=== PATIENT | female | born 1965 | race Caucasian/White ===

== ENCOUNTER 2020-01-06 10:36 | Emergency (ER) | payer SELFPAY ==
[2020-01-06 10:41] VITALS: BP 176/95; PULSE 70; RESP 18; TEMP 37; O2SAT 97; BMI 24.5
--- NOTE | 2020-01-06 10:42 | CT_ITS ---
WS: [id number] CT HEAD NONCONTRAST HISTORY: Symptoms of Acute Stroke TECHNIQUE: Contiguous axial imaging performed through the brain in 2.5 mm imaging. Bone and soft tiss ue windows. Sagittal and coronal reformats reviewed. All CT scans at [facility] use at ast one of these dose optimization techniques: automated exposure control; mA and/or kV adjustment pe r patient size (includes targeted exams where dose is matched to clinical indication); or iterative r econstruction. DLP: 666.0 mGy.cm COMPARISON: 11/05/2009 No acute intracranial hemorrhage, midline shift or mass effect. No atrophy or prior infarcts or herniation. Ventricles: Normal size with no hydrocephalus. Paranasal sinuses: As visualized are clear. Mastoid air cells: Well pneumatized. Calvarium and scalp: Skull is intact with no soft tissue edema or swelling. CT/CT head wo con* [id number] IMPRESSION: Negative head CT.
--- NOTE | 2020-01-06 10:42 | ECG_ITS ---
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 Measurements Intervals [place] Rate: 63 P: 65 OK: 136 QRS: 13 QRSD: 85 T: 51 QT: 399 QTc: 411 Interpretive Statements SINUS RHYTHM Compared to ECG 04/09/2019 14:54:31 No significant changes Electronically Signed On 01-06-2020 16:55:10 CDT by Major Rice M.D. [email or web address] [email or web address]/store/[id number]
[2020-01-06 10:50] VITALS: BP 176/95; PULSE 73; RESP 19; O2SAT 97
[2020-01-06 11:02] LABS: Basophils % 0.4 %; Eosinophils # 0.1 10^3/uL (0.0-0.8); Eosinophils % 0.9 %; Lymphocytes # 3.2 10^3/uL (0.8-4.8); Lymphocytes % 33.9 %; Mean Corpuscular HGB Conc 31.6 g/dL (30.0-36.0); Mean Corpuscular Hemoglobin 30.3 pg (28.0-34.0); Mean Platelet Volume 10.1 fL (7.4-10.4); Monocytes # 0.4 10^3/uL (0.2-0.9); Monocytes % 4.6 %; Neutrophils # 5.7 10^3/uL (1.8-7.7); Nucleated Red Blood Cells % 0 %; Platelet Count 274 10^3/cmm (130-400); Red Blood Count 3.96 10^6/uL (4.1-5.3); Red Cell Distribution Width 13.4 % (12.1-15.1); White Blood Count 9.6 10^3/uL (4.0-10.0)
--- NOTE | 2020-01-06 11:06 | W.ED.NEUROSD ---
HPI - Neuro Symptoms/Deficit General: Chief Complaint: Neuro Symptoms/Deficit Stated Complaint: poss stroke Time Seen by Provider: 01/06/20 10:41 History of Present Illness: HPI Narrative: 54-year-old female presents emergency room complaining of being little confused. She denies any weakness over the last day she has had elevated blood pressure. Multiple greater than 180 on the systolic side yesterday she was stumbling a little work to check her blood pressure was markedly elevated 180s 190s over 100s. She is not had any difficulty speech or swallowing no recent illness no respiratory GI or symptoms. Her blood pressure still is elevated when she is here today. She was seen at [facility] and her blood pressure is elevated and they sent here to be evaluated. Later in the visit while the patient was here she developed a severe migrainous headache mostly on the left side. She did not have an initially when she arrived but it developed while here. Onset (ago): day(s) (1) Timing confirmed by: family member Severity: mild Quality: weak Relieving factors: none Exacerbating factors: none Context: gradual onset Associated symptoms: Reports no associated symptoms, headache(s), anorexia, malaise, nausea, seizures, short of breath, vertigo, vomiting, weakness and other; Deny chest pain, cough, diaphoresis or fevers/chills Treatments Prior to Arrival: none Review of Systems Const: Reports: malaise; Denies: diaphoresis ENMT: Denies: throat pain, ear or mastoid pain, nasal discharge or nasal congestion Card: Denies: chest pain Resp: Denies: dyspnea, productive cough or non-productive cough GI: Reports: nausea and vomiting : Denies: flank pain, difficulty voiding, dysuria, urinary frequency or urinary urgency Skin/Breast: Denies: rash or pruritus Neuro: Reports: headache(s) and vertigo PFSH ED PFSH: Medical History Hypertension Migraines Surgical History H/O: hysterectomy History of oophorectomy NIH stroke score NIHSS: Level Of Consciousness - 1a: 0 Level Of Consciousness Questions - 1b: Both Correct Level Of Consciousness Commands - 1c: Both Correct Best Gaze - 2: Normal Visual Arce - 3: No Visual Loss Facial Palsy - 4: Normal Motor Arm Right - 5: No Drift Motor Arm Left - 5: No Drift Motor Leg Right - 6: No Drift Motor Leg Left - 6: No Drift Limb Ataxia - 7: Absent Sensory - 8: Normal Best Language - 9: No Aphasia Dysarthia - 10: Normal Extinction And Inattention - 11: 0 Score: Total Score: 0 Physical Exam Const: COMMON NORMALS: no acute distress GENERAL APPEARANCE: cooperative and comfortable ORIENTATION/CONSCIOUSNESS: Yes awake, Yes oriented to person, Yes oriented to place and Yes oriented to time HENMT: COMMON NORMALS: normocephalic, atraumatic, hearing grossly normal bilaterally, external ears normal, EAC's normal, TM's normal bilaterally, Normal nasal mucous membranes and turbinates present, moist oral mucous membranes and oropharynx normal HEAD & SCALP: normocephalic and atraumatic NOSE: Normal nasal mucous membranes and turbinates present EXTERNAL EAR: Yes external ears normal EXTERNAL AUDITORY CANAL: EAC's normal TYMPANIC MEMBRANE: TM's normal bilaterally Eye: COMMON NORMALS: Equal, round and reactive pupils present, EOMs intact bilaterally, conjunctivae normal and no scleral icterus CONJUNCTIVA: Yes conjunctivae normal PUPIL: Yes Equal, round and reactive pupils present Neck/C-Spine: COMMON NORMALS: full ROM, no lymphadenopathy, supple and no JVD Lymph: LYMPHATIC: no lymphadenopathy noted and no lymphedema noted Resp: COMMON NORMALS: normal respiratory effort, No retractions, No use of accessory muscles and clear to auscultation bilaterally AUSCULTATION: clear to auscultation bilaterally Cardio: COMMON NORMALS: no JVD, regular rate, regular rhythm and No murmurs present (Cardio) RATE: regular rate RHYTHM: regular rhythm GI: COMMON NORMALS: Soft to palpation and No hepatosplenomegaly present AUSCULTATION: Yes normoactive bowel sounds PALPATION: Yes Soft to palpation, No Tenderness to palpation present (GI), No Guarding due to palpation present (GI) and Yes No hepatosplenomegaly present Extremity: COMMON NORMALS: normal to inspection, capillary refill normal, no clubbing, cyanosis or edema, no calf tenderness and no pedal edema Neuro: SENSORIUM/ORIENTATION: Yes oriented to person, Yes oriented to place and Yes oriented to time Skin: COMMON NORMALS: no rashes or lesions noted GENERAL SKIN EXAM: no rashes or lesions noted Course Vital Signs: Vital signs: Vital Signs Temperature 98.6 F 01/06/20 10:41 Pulse Rate 57 L 01/06/20 14:03 Respiratory Rate 16 01/06/20 14:03 Blood Pressure 166/94 01/06/20 14:03 Pulse Oximetry 98 01/06/20 14:03 MDM - Neuro Symptoms/Deficit MDM Narrative: Medical decision making narrative: Blood pressure is improved. Will start on amlodipine 5 mg daily we did give him Depacon for headache and significant improvement. She is feeling better however discharge home if has recurrence may return she has no focal neurologic deficits time of discharge did discuss with her blood pressure continue her other blood pressure medications like her to start on baby aspirin daily 5 mg vitamin low to pain daily and follow-up with primary care doctor for reevaluation of blood pressure within the next week. Lab Data: Labs: Lab Results 01/06/20 01/06/20 01/06/20 Range/Units 10:55 10:55 10:55 WBC 9.6 (4.0-10.0) 10^3/ uL RBC 3.96 L (4.1-5.3) 10^6/u L Hgb 12.0 (11.5-15.3) g/dL Hct 38.0 (37.0-47.0) % MCV 96.0 (81-99) fL MCH 30.3 (28.0-34.0) pg MCHC 31.6 (30.0-36.0) g/dL RDW 13.4 (12.1-15.1) % Plt Count 274 (130-400) 10^3/c mm MPV 10.1 (7.4-10.4) fL Neut % (Auto) 60.0 % Lymph % (Auto) 33.9 % Esmeralda % (Auto) 4.6 % Eos % (Auto) 0.9 % Baso % (Auto) 0.4 % Neut # (Auto) 5.7 (1.8-7.7) 10^3/u L Lymph # (Auto) 3.2 (0.8-4.8) 10^3/u L Esmeralda # (Auto) 0.4 (0.2-0.9) 10^3/u L Eos # (Auto) 0.1 (0.0-0.8) 10^3/u L Baso # (Auto) 0.0 (0.0-0.1) 10^3/u L Nucleated RBC % (a uto) 0 % Nucleated RBCs # 0.0 /100WBC PT 12.50 (10.5-13.3) SECO NDS INR 0.91 (0.8-1.2) APTT 28.0 (23.9-36.7) SECO NDS Sodium 139 (136-145) mmol/L Potassium 3.6 (3.5-5.1) mmol/L Chloride 105 (98-107) mmol/L Carbon Dioxide 22 (22-29) mmol/L Anion Gap 15.6 (5-19) BUN 10 (6-20) mg/dL Creatinine 0.6 (0.5-0.9) mg/dL GFR Calculation 104.2 (90-130) mL/min Glucose 93 (65-115) mg/dL POC Glucose (70-110) mg/dL Calculated Osmolal ity 284 L (285-295) mOsm/k g Calcium 9.6 (8.5-10.5) mg/dL Total Bilirubin 0.3 (0.15-1.2) mg/dL AST 15 (0-32) U/L ALT 11 (0-33) U/L Alkaline Phosphata se 65 (35-105) IU/L Total Protein 7.1 (6.6-8.7) g/dL Albumin 4.5 (3.5-5.2) g/dL Globulin 2.6 (1.3-4.6) g/dL Urine Color (Yellow) Urine Appearance (CLEAR) Urine pH (5-7) Ur Specific Gravit y (1.005-1.030) Urine Protein (Negative) Urine Glucose (UA) (Normal) Urine Ketones (Negative) Urine Blood (Negative) Urine Nitrate (Negative) Urine Bilirubin (NEGATIVE) Urine Urobilinogen (Negative) mg/dL Ur Leukocyte [place] ase (Negative) Urine RBC (0-2) /hpf Urine WBC (0-5) /hpf Ur Squamous Epith Cells (0-5) Amorphous Sediment Urine Bacteria (NONE) Urine Opiates Scre en (Negative) ng/mL Ur Barbiturates Sc reen (Negative) ng/mL Ur Phencyclidine S crn (Negative) ng/mL Ur Amphetamines Sc reen (Negative) ng/mL U Benzodiazepines Scrn (Negative) ng/mL Urine Cocaine Scre en (Negative) ng/mL U Marijuana (THC) Screen (Negative) ng/mL 01/06/20 01/06/20 01/06/20 Range/Units 10:57 11:04 11:04 WBC (4.0-10.0) 10^3/ uL RBC (4.1-5.3) 10^6/u L Hgb (11.5-15.3) g/dL Hct (37.0-47.0) % MCV (81-99) fL MCH (28.0-34.0) pg MCHC (30.0-36.0) g/dL RDW (12.1-15.1) % Plt Count (130-400) 10^3/c mm MPV (7.4-10.4) fL Neut % (Auto) % Lymph % (Auto) % Esmeralda % (Auto) % Eos % (Auto) % Baso % (Auto) % Neut # (Auto) (1.8-7.7) 10^3/u L Lymph # (Auto) (0.8-4.8) 10^3/u L Esmeralda # (Auto) (0.2-0.9) 10^3/u L Eos # (Auto) (0.0-0.8) 10^3/u L Baso # (Auto) (0.0-0.1) 10^3/u L Nucleated RBC % (a uto) % Nucleated RBCs # /100WBC PT (10.5-13.3) SECO NDS INR (0.8-1.2) APTT (23.9-36.7) SECO NDS Sodium (136-145) mmol/L Potassium (3.5-5.1) mmol/L Chloride (98-107) mmol/L Carbon Dioxide (22-29) mmol/L Anion Gap (5-19) BUN (6-20) mg/dL Creatinine (0.5-0.9) mg/dL GFR Calculation (90-130) mL/min Glucose (65-115) mg/dL POC Glucose 102 (70-110) mg/dL Calculated Osmolal ity (285-295) mOsm/k g Calcium (8.5-10.5) mg/dL Total Bilirubin (0.15-1.2) mg/dL AST (0-32) U/L ALT (0-33) U/L Alkaline Phosphata se (35-105) IU/L Total Protein (6.6-8.7) g/dL Albumin (3.5-5.2) g/dL Globulin (1.3-4.6) g/dL Urine Color Straw (Yellow) Urine Appearance Clear (CLEAR) Urine pH 5.0 (5-7) Ur Specific Gravit y 1.000 L (1.005-1.030) Urine Protein Neg (Negative) Urine Glucose (UA) Norm (Normal) Urine Ketones Negative (Negative) Urine Blood 2+ H (Negative) Urine Nitrate Negative (Negative) Urine Bilirubin Neg (NEGATIVE) Urine Urobilinogen Norm (Negative) mg/dL Ur Leukocyte [place] ase Negative (Negative) Urine RBC 0-4 H (0-2) /hpf Urine WBC None (0-5) /hpf Ur Squamous Epith Cells 0-4 H (0-5) Amorphous Sediment Not Reportable Urine Bacteria Trace (NONE) Urine Opiates Scre en Negative (Negative) ng/mL Ur Barbiturates Sc reen Negative (Negative) ng/mL Ur Phencyclidine S crn Negative (Negative) ng/mL Ur Amphetamines Sc reen Negative (Negative) ng/mL U Benzodiazepines Scrn Negative (Negative) ng/mL Urine Cocaine Scre en Negative (Negative) ng/mL U Marijuana (THC) Screen Positive H (Negative) ng/mL Discharge Plan Discharge Patient Disposition: Home, Self-Care Clinical Impression: Hypertension, Migraines Condition: Stable Prescriptions: New amlodipine 5 mg tablet 5 mg PO DAILY Qty: 30 RF: 0 aspirin 81 mg tablet,delayed release (DR/EC) 81 mg PO DAILY Qty: 30 RF: 0 No Action trazodone 50 mg tablet 50 mg PO BEDTIME RF: 0 lisinopril 20 mg tablet 20 mg PO DAILY RF: 0 nitroglycerin 0.4 mg tablet, sublingual 0.4 mg sublingual PRN RF: 0 Discharge Orders: Discharge Order (Routine); Ordered 01/06/20 Ordered By: Benigno Zheng Referrals: Patrick Guevara MD [Family Provider] - Discharge Diet: Advance as tolerated Discharge Activity: Resume usual activity Activity Restrictions/Additional Instructions: Follow-up on blood pressure with your primary care doctor within the next week Stand Alone Forms: Work/School Release Discharge Date/Time: 01/06/20 14:10 Coding Level of Care Code ED Police Service Technician for Bobbi Nuñez
[2020-01-06 11:16] LABS: Alanine Aminotransferase 11 U/L (0-33); Albumin Level 4.5 g/dL (3.5-5.2); Alkaline Phosphatase 65 IU/L (35-105); Anion Gap 15.6 (5-19); Aspartate Amino Transferase 15 U/L (0-32); Blood Urea Nitrogen 10 mg/dL (6-20); Calcium 9.6 mg/dL (8.5-10.5); Carbon Dioxide 22 mmol/L (22-29); Chloride 105 mmol/L (98-107); Globulin 2.6 g/dL (1.3-4.6); Glomerular Filtration Rate 104.2 mL/min (90-130); Glucose 93 mg/dL (65-115); Osmolality Calculated 284 mOsm/kg (285-295); Potassium 3.6 mmol/L (3.5-5.1); Sodium 139 mmol/L (136-145); Total Bilirubin 0.3 mg/dL (0.15-1.2); Total Protein 7.1 g/dL (6.6-8.7)
[2020-01-06 11:25] LABS: Add Urine Microscopic? YES; Bilirubin Urine Neg (NEGATIVE); Blood Urine 2+ (Negative); Glucose Urine UA Norm (Normal); Ketones Urine Negative (Negative); Leukocyte Esterase Urine Negative (Negative); Nitrate Urine Negative (Negative); Protein Urine Neg (Negative); Urine Appearance Clear (CLEAR); Urine Color Straw (Yellow); Urobilinogen Urine Norm (Negative)
[2020-01-06 11:28] LABS: Amphetamines Screen Urine Negative (Negative); Barbiturates Screen Urine Negative (Negative); Benzodiazepines Screen Urine Negative (Negative); Cocaine Screen Urine Negative (Negative); Opiate Screen Urine Negative (Negative); PCP Screen Urine Negative (Negative); THC Screen Urine Positive (Negative)
[2020-01-06 11:37] LABS: INR 0.91 (0.8-1.2)
[2020-01-06 11:46] LABS: Add Urine Culture? No; Bacteria Urine TRACE; RBC Urine 0-4 /hpf (0-2); Squamous Epithelial Cell Urine 0-4 (0-5)
[2020-01-06 11:48] VITALS: BP 157/90; PULSE 67; RESP 16; O2SAT 98
[2020-01-06] MEDS: metoclopramide 5 mg/mL SDV 2 mL 10 MG IVP (12:40)
[2020-01-06 12:41] VITALS: RESP 15; O2SAT 99
[2020-01-06] MEDS: ketorolac 30 mg/mL INJ IVP (12:41)
[2020-01-06] MEDS: morphine 4 mg/mL SDV 1 mL IVP (12:41)
[2020-01-06 12:45] VITALS: BP 127/73; PULSE 62; RESP 15; O2SAT 99
[2020-01-06] MEDS: valproic acid inj 500 MG in sodium chloride 0.9% 50 ML 55 MG IV (13:09)
[2020-01-06 14:03] VITALS: BP 166/94; PULSE 57; RESP 16; O2SAT 98
[2020-01-06 21:22] LABS: Glucose Point of Care 102 mg/dL (70-110)
== END 2020-01-06 14:10 | disposition home or self-care (01) ==
PROVIDERS: Emergency Provider Family Medicine; Family Provider Family Medicine
DX: I10 Essential (primary) hypertension (principal); G43.909 Migraine, unspecified, not intractable, without status migrainosus
CPT/HCPCS: 12345; 36416; 70450; 80053; 80306; 81001; 82962; 85025; 85610; 85730; 93005; 96365; 96366; 96375; 99284; J1885; J2270; J2765

== ENCOUNTER 2021-07-02 11:34 | Observation (INO) | payer OTHER, SELFPAY ==
[2021-07-02 11:42] VITALS: BP 177/68; PULSE 85; RESP 20; TEMP 36.9; O2SAT 100
[2021-07-02 12:03] LABS: ABG PH Result 7.46 (7.35-7.45); Blood Gas Allen Test Pos; Blood Gas Operator Identificat MONRO; Blood Gas Sample Site Radial, left; Blood Gas Sample Type Arterial; Ionized Calcium Level - ABG 1.2 mmol/L (1.1-1.4); Potassium Level - ABG 3.4 mmol/L (3.5-5.0); Total Hemoglobin 12.4 g/dL (12-16)
[2021-07-02 12:04] LABS: ABG PCO2 33.8 mmHg (35-45); Alveolar-Arterial Oxygen Gradi 5.6 mmHg (5-10); Arterial Blood Gas Hematocrit 37.9 % (37-47); Base Excess ABG 0.9 mmol/L (-2.0-2.0); Carboxyhemoglobin 5.7 %THgb (0.4-20.1); HCO3 ABG 24.2 mmol/L (22-26); HGB O2 Sat 88.3 % (95-100); Oxygen Device ROOM AIR; Oxygen Saturation ABG 94.7; PO2 ABG 62.6 mmHg (80.0-100.0)
--- NOTE | 2021-07-02 12:15 | ECG_ITS ---
[facility] Test Date: 2021-07-02 Pat Name: Irma Stern Department: Room: Gender: Female Rn Procedures: : 1965 Requested By: Benigno Main Order Number: [id number] Dann MD: Lorenzo Pinto M.D. Measurements Intervals [place] Rate: 72 P: 70 DC: 148 QRS: 51 QRSD: 90 T: 66 QT: 385 QTc: 422 Interpretive Statements SINUS RHYTHM INTERPRETATION BASED ON A DEFAULT AGE OF 40 YEARS Compared to ECG 01/06/2020 11:06:57 No significant changes Electronically Signed On 07-03-2021 20:15:13 ACTIVITIES VOLUNTEER by Lorenzo Pinto M.D. [email or web address] hospital [email or web address] health [email or web address] Hydro/store/NU/[id number] f
--- NOTE | 2021-07-02 12:15 | CTR_ITS ---
PROCEDURE INFORMATION: Exam: CT Angiography Head With Contrast, Arteriography Exam date and time: 07/02/2021 12:15 PM Age: 55 years old Clinical indication: Speech disturbance; Dysarthria and anarthria TECHNIQUE: Imaging protocol: Computed tomography angiography of the head with contrast. Exam focused on the arteries. 3D rendering (Not supervised by radiologist): MIP and/or 3D reconstructed images were created by the technologist. Radiation optimization: All CT scans at this facility use at least one of these dose optimization techniques: automated exposure control; mA and/or kV adjustment per patient size (includes targeted exams where dose is matched to clinical indication); or iterative reconstruction. Contrast material: OMNI 350; Contrast volume: 95 ml; Contrast route: INTRAVENOUS (IV); COMPARISON: CT head wo con* [id number] 07/02/2021 12:57 PM RADIATION DOSE METRICS: Total DLP (mGy-cm): 1559.85 FINDINGS: ANTERIOR CIRCULATION: Right internal carotid artery: Unremarkable. Intracranial segment is patent with no significant stenosis. No aneurysm. Right middle cerebral artery: The right middle cerebral artery is patent. There is a 2 mm aneurysm at the right MCA bifurcation. Right anterior cerebral artery: Unremarkable. No occlusion or significant stenosis. No aneurysm. Left internal carotid artery: Unremarkable. Intracranial segment is patent with no significant stenosis. No aneurysm. Left middle cerebral artery: Unremarkable. No occlusion or significant stenosis. No aneurysm. Left anterior cerebral artery: Unremarkable. No occlusion or significant stenosis. No aneurysm. POSTERIOR CIRCULATION: Right vertebral artery: Unremarkable. No occlusion or significant stenosis. No aneurysm. Left vertebral artery: Unremarkable. No occlusion or significant stenosis. No aneurysm. Basilar artery: Unremarkable. No occlusion or significant stenosis. No aneurysm. Right posterior cerebral artery: Unremarkable. No occlusion or significant stenosis. No aneurysm. Left posterior cerebral artery: Unremarkable. No occlusion or significant stenosis. No aneurysm. Brain: No definite mass, cerebral edema, or midline shift. Cerebral ventricles: No ventriculomegaly. Bones/joints: Unremarkable. No acute fracture. Soft tissues: Unremarkable. PROCEDURE INFORMATION: Exam: CT Angiography Neck With Contrast Exam date and time: 07/02/2021 12:15 PM Age: 55 years old Clinical indication: Speech disturbance; Dysarthria and anarthria TECHNIQUE: Imaging protocol: Computed tomography angiography of the neck with contrast. 3D rendering (Not supervised by radiologist): MIP and/or 3D reconstructed images were created by the technologist. Radiation optimization: All CT scans at this facility use at least one of these dose optimization techniques: automated exposure control; mA and/or kV adjustment per patient size (includes targeted exams where dose is matched to clinical indication); or iterative reconstruction. Contrast material: OMNI 350; Contrast volume: 95 ml; Contrast route: INTRAVENOUS (IV); COMPARISON: CT head wo con* [id number] 07/02/2021 12:57 PM RADIATION DOSE METRICS: Total DLP (mGy-cm): 1559.85 FINDINGS: Right common carotid artery: No stenosis. No dissection or occlusion. Right internal carotid artery: There is less than 20% stenosis of the proximal right ICA. Minimal beading of the right ICA is noted, possibly due to fibromuscular dysplasia. Right external carotid artery: No occlusion or stenosis of the origin. Left common carotid artery: No stenosis. No dissection or occlusion. Left internal carotid artery: There is beading of the left internal carotid artery, possibly due to fibromuscular dysplasia. This is causing less than 20% stenosis of the proximal left ICA. Left external carotid artery: No occlusion or stenosis of the origin. Right vertebral artery: No stenosis. No dissection or occlusion. Left vertebral artery: No stenosis. No dissection or occlusion. Soft tissues: Normal. No significant soft tissue swelling. Bones/joints: No acute fracture. Lungs: Centrilobular emphysema is present in the upper lobes. CT/CT angio headneck* [id number] IMPRESSION: 1. No acute abnormality. No large vessel occlusion. 2. 2 mm right MCA bifurcation aneurysm IMPRESSION: 1. No acute abnormality. 2. Chronic findings as discussed above. REFERENCES: NASCET CRITERIA. The degree of internal carotid artery stenosis is based on NASCET criteria. Normal is no stenosis. Mild is less than 50% stenosis. Moderate is 50-69% stenosis. Severe is 70% to 99% stenosis. Total occlusion is no detectable patent lumen.
--- NOTE | 2021-07-02 12:15 | CTR_ITS ---
PROCEDURE INFORMATION: Exam: CT Head Without Contrast Exam date and time: 07/02/2021 12:15 PM Age: 55 years old Clinical indication: Speech disturbance; Slurred speech; Additional info: Symptoms of acute stroke TECHNIQUE: Imaging protocol: Computed tomography of the head without contrast. Radiation optimization: All CT scans at this facility use at least one of these dose optimization techniques: automated exposure control; mA and/or kV adjustment per patient size (includes targeted exams where dose is matched to clinical indication); or iterative reconstruction. COMPARISON: CT head wo con* [id number] 01/06/2020 11:59 AM RADIATION DOSE METRICS: Total DLP (mGy-cm): 688.98 FINDINGS: Brain: No acute intracranial hemorrhage, cerebral edema, or midline shift. Cerebral ventricles: No hydrocephalus. Paranasal sinuses: There is no acute sinusitis. Mastoid air cells: Visualized mastoid air cells are well aerated. Orbital cavity: Unremarkable as visualized. Bones/joints: No acute fracture. Soft tissues: Unremarkable. CT/CT head wo con* [id number] IMPRESSION: 1. No acute intracranial abnormality. 2. [place] Stroke Program Early CT Score (ASPECTS) = 10
--- NOTE | 2021-07-02 12:26 | ED_ITS ---
HPI - Neuro Symptoms/Deficit General: Chief Complaint: Neuro Symptoms/Deficit Stated Complaint: possible stroke, weakness this am Time Seen by Provider: 07/02/21 12:02 History of Present Illness: HPI Narrative: 55-year-old female presents to the emergency room with difficulty with word selection and some slight slurring of the words. Initially on arrival triage nurse reported that she had a facial droop she did not have a facial droop when I seen the patient. Patient awoke this morning at 6 AM without any apparent deficits. However does not sound like she actually talked to any family member she went back to bed and then at 9 woke up and had difficulty with formulating words. When I seen the patient she has some very mild decrease sensation in the right arm and leg and right side of the face and some dysarthria. She has no limb ataxia. Her NIH score is 2. But her last known well time at 6 AM. Patient presents at 11:34 AM 5-1/2 hours after last known well. When patient is seen initially she is tachypneic and tells me she has circumoral numbness and tingling. Onset (ago): minute(s) Location: speech, right face, right arm and left leg History of same: No Severity: mild Relieving factors: none Exacerbating factors: none Context: other (Awoke with symptoms) On Anticoagulants: No Associated symptoms: Deny chest pain, cough, diaphoresis, fevers/chills, headach e(s), anorexia, malaise, nausea, seizures, short of breath, syncope, tingling, vertigo, vomiting or weakness Treatments Prior to Arrival: Aspirin (Takes daily) Review of Systems Const: Denies: malaise or diaphoresis ENMT: Denies: throat pain, ear or mastoid pain, nasal discharge or nasal congestion Card: Denies: chest pain or syncope Resp: Denies: dyspnea, productive cough or non-productive cough GI: Denies: nausea or vomiting : Denies: flank pain, difficulty voiding, dysuria, urinary frequency or urinary urgency Skin/Breast: Denies: rash or pruritus Neuro: Denies: headache(s) or vertigo PFS ED PFSH: Medical History (Updated 07/02/21 @ 14:46 by Beingno Zheng DO) Hypertension Migraines Surgical History H/O: hysterectomy History of oophorectomy NIH stroke score NIHSS: Level Of Consciousness - 1a: 0 Level Of Consciousness Questions - 1b: Both Correct Level Of Consciousness Commands - 1c: Both Correct Best Gaze - 2: Normal Visual Arce - 3: No Visual Loss Facial Palsy - 4: Normal Motor Arm Right - 5: No Drift Motor Arm Left - 5: No Drift Motor Leg Right - 6: No Drift Motor Leg Left - 6: No Drift Limb Ataxia - 7: Absent Sensory - 8: Mild To Moderate Loss Best Language - 9: No Aphasia Dysarthia - 10: Mild/Moderate Dysarthia Extinction And Inattention - 11: 0 Score: Total Score: 2 Physical Exam Const: COMMON NORMALS: no acute distress GENERAL APPEARANCE: cooperative and comfortable ORIENTATION/CONSCIOUSNESS: Yes awake, Yes oriented to person, Yes oriented to place and Yes oriented to time HENMT: COMMON NORMALS: normocephalic, atraumatic, hearing grossly normal bilaterally, external ears normal, EAC's normal, TM's normal bilaterally and Normal nasal mucous membranes and turbinates present HEAD & SCALP: normocephalic and atraumatic NOSE: Normal nasal mucous membranes and turbinates present EXTERNAL EAR: Yes external ears normal EXTERNAL AUDITORY CANAL: EAC's normal TYMPANIC MEMBRANE: TM's normal bilaterally Eye: COMMON NORMALS: Equal, round and reactive pupils present, EOMs intact bilaterally, conjunctivae normal and no scleral icterus CONJUNCTIVA: Yes conjunctivae normal PUPIL: Yes Equal, round and reactive pupils present Neck/C-Spine: COMMON NORMALS: full ROM, no lymphadenopathy, supple and no JVD Resp: COMMON NORMALS: normal respiratory effort, No retractions, No use of accessory muscles and clear to auscultation bilaterally AUSCULTATION: clear to auscultation bilaterally Cardio: COMMON NORMALS: no JVD, regular rate, regular rhythm and No murmurs present (Cardio) RATE: regular rate RHYTHM: regular rhythm GI: COMMON NORMALS: Soft to palpation and No hepatosplenomegaly present AUSCULTATION: Yes normoactive bowel sounds PALPATION: Yes Soft to palpation, No Tenderness to palpation present (GI), No Guarding due to palpation present (GI) and Yes No hepatosplenomegaly present Extremity: COMMON NORMALS: normal to inspection, capillary refill normal, no clubbing, cyanosis or edema, no calf tenderness and no pedal edema Neuro: SENSORIUM/ORIENTATION: Yes oriented to person, Yes oriented to place and Yes oriented to time Skin: COMMON NORMALS: no rashes or lesions noted GENERAL SKIN EXAM: no rashes or lesions noted Course Vital Signs: Vital signs: Vital Signs Temperature 98.5 F 07/02/21 11:42 Pulse Rate 85 07/02/21 11:42 Respiratory Rate 20 H 07/02/21 11:42 Blood Pressure 177/68 07/02/21 11:42 Pulse Oximetry 100 07/02/21 11:42 MDM - Neuro Symptoms/Deficit MDM Narrative: Medical decision making narrative: Patient outside window for any kind intervention versus NIH score initially in a senior was to. She is developing a bit of a migraine which she has had in the past that is different than what she usually has. CT of the head and CTA of the head and neck are unremarkable. Still does have some of her dysarthria we will go ahead and admit her to the [facility] floor discussed Dr. Bui he will see her for the remainder of the work-up. Lab Data: Labs: Lab Results 07/02/21 07/02/21 07/02/21 11:22 11:22 11:51 WBC RBC Hgb Hct MCV MCH MCHC RDW Plt Count MPV Neut % (Auto) Lymph % (Auto) Story % (Auto) Eos % (Auto) Baso % (Auto) Neut # (Auto) Lymph # (Auto) Story # (Auto) Eos # (Auto) Baso # (Auto) Nucleated RBC % (a uto) Nucleated RBCs # PT INR APTT Specimen Type Arterial Sample Site Radial, left ABG pH 7.46 H (7.35-7.45) ABG pCO2 33.8 mmHg L mmHg (35-45) ABG pO2 62.6 mmHg L mmHg (80.0-100.0) ABG HCO3 24.2 mmol/L mmol/ L (22-26) ABG O2 Saturation 94.7 ABG Base Excess 0.9 mmol/L mmol/L (-2.0-2.0) Zeyad Test Pos A-a O2 Gradient 5.6 mmHg mmHg (5-10) Hematocrit 37.9 % % (37-47) Hgb O2 Saturation 88.3 % L % (95-100) Carboxyhemoglobin 5.7 %THgb %THgb (0.4-20.1) Methemoglobin 1.0 % % (0.4-1.5) Total Hemoglobin 12.4 g/dL g/dL (12-16) Sodium 143.0 mmol/L mmol /L (131-143) Potassium 3.4 mmol/L L mmol /L (3.5-5.0) Glucose 105.0 mg/dL mg/dL (70-115) Ionized Calcium 1.2 mmol/L mmol/L (1.1-1.4) O2 Delivery Device Room air FiO2 21.0 % % Thermal Intelligence Analyst ID [place] Chloride Carbon Dioxide Anion Gap BUN Creatinine GFR Calculation Calculated Osmolal ity Calcium Total Bilirubin AST ALT Alkaline Phosphata se Total Protein Albumin Globulin Urine Color Yellow (Yellow) Urine Appearance Clear (CLEAR) Urine pH 6 (5-7) Ur Specific Gravit y 1.010 (1.005-1.030) Urine Protein Neg (Negative) Urine Glucose (UA) Norm (Normal) Urine Ketones Negative (Negative) Urine Blood 2+ H (Negative) Urine Nitrate Negative (Negative) Urine Bilirubin Neg (Negative) Urine Urobilinogen Norm mg/dL mg/dL (Negative) Ur Leukocyte [place] ase Negative (Negative) Urine RBC 0-4 /hpf H /hpf (0-2) Urine WBC None /hpf /hpf (0-5) Ur Squamous Epith Cells Rare /hpf /hpf (0-5) Amorphous Sediment Not Reportable Urine Bacteria None /hpf /hpf (NONE) Urine Opiates Scre en Negative ng/mL ng /mL (Negative) Ur Barbiturates Sc reen Negative ng/mL ng /mL (Negative) Ur Phencyclidine S crn Negative ng/mL ng /mL (Negative) Ur Amphetamines Sc reen Negative ng/mL ng /mL (Negative) U Benzodiazepines Scrn Negative ng/mL ng /mL (Negative) Urine Cocaine Scre en Negative ng/mL ng /mL (Negative) U Marijuana (THC) Screen Positive ng/mL H ng/mL (Negative) 07/02/21 07/02/21 07/02/21 12:00 12:00 12:00 WBC 9.3 10^3/uL 10^3/ uL (4.0-10.0) RBC 4.22 10^6/uL 10^6 /uL (4.1-5.3) Hgb 12.6 g/dL g/dL (11.5-15.3) Hct 37.9 % % (37.0-47.0) MCV 89.8 fl fl (81-99) MCH 29.9 pg pg (28.0-34.0) MCHC 33.2 g/dL g/dL (30.0-36.0) RDW 13.7 % % (12.1-15.1) Plt Count 350 10^3/cmm 10^3 /cmm (130-400) MPV 10.4 fL fL (7.4-10.4) Neut % (Auto) 61.9 % % Lymph % (Auto) 32.0 % % Story % (Auto) 5.2 % % Eos % (Auto) 0.4 % % Baso % (Auto) 0.4 % % Neut # (Auto) 5.75 10^3/uL 10^3 /uL (1.8-7.7) Lymph # (Auto) 3.0 10^3/uL 10^3/ uL (0.8-4.8) Story # (Auto) 0.5 10^3/uL 10^3/ uL (0.2-0.9) Eos # (Auto) 0.0 10^3/uL 10^3/ uL (0.0-0.8) Baso # (Auto) 0.0 10^3/uL 10^3/ uL (0.0-0.1) Nucleated RBC % (a uto) 0 % % Nucleated RBCs # 0.0 /100WBC /100W BC PT 12.90 SECONDS SEC ONDS (12.1-14.9) INR 0.95 (0.8-1.2) APTT 28.0 SECONDS SECO NDS (23.9-36.7) Specimen Type Sample Site ABG pH ABG pCO2 ABG pO2 ABG HCO3 ABG O2 Saturation ABG Base Excess Zeyad Test A-a O2 Gradient Hematocrit Hgb O2 Saturation Carboxyhemoglobin Methemoglobin Total Hemoglobin Sodium 142 mmol/L mmol/L (136-145) Potassium 3.6 mmol/L mmol/L (3.5-5.1) Glucose 99 mg/dL mg/dL (65-115) Ionized Calcium O2 Delivery Device FiO2 Thermal Intelligence Analyst ID Chloride 105 mmol/L mmol/L (98-107) Carbon Dioxide 21 mmol/L L mmol/ L (22-29) Anion Gap 19.6 H (5-19) BUN 11 mg/dL mg/dL (6-20) Creatinine 0.8 mg/dL mg/dL (0.5-0.9) GFR Calculation 74.5 mL/min L mL/ min (90-130) Calculated Osmolal ity 293 mOsm/kg mOsm/ kg (285-295) Calcium 8.8 mg/dL mg/dL (8.5-10.5) Total Bilirubin 0.4 mg/dL mg/dL (0.15-1.2) AST 12 U/L U/L (0-32) ALT 12 U/L U/L (0-33) Alkaline Phosphata se 72 IU/L IU/L (35-105) Total Protein 6.7 g/dL g/dL (6.6-8.7) Albumin 4.4 g/dL g/dL (3.5-5.2) Globulin 2.3 g/dL g/dL (1.3-4.6) Urine Color Urine Appearance Urine pH Ur Specific Gravit y Urine Protein Urine Glucose (UA) Urine Ketones Urine Blood Urine Nitrate Urine Bilirubin Urine Urobilinogen Ur Leukocyte [place] ase Urine RBC Urine WBC Ur Squamous Epith Cells Amorphous Sediment Urine Bacteria Urine Opiates Scre en Ur Barbiturates Sc reen Ur Phencyclidine S crn Ur Amphetamines Sc reen U Benzodiazepines Scrn Urine Cocaine Scre en U Marijuana (THC) Screen Discharge Plan Discharge Patient Disposition: Placed in Observation Clinical Impression: Cerebrovascular accident, Hypertension, Migraines Coding Level of Care Code ED General Operator for Bobbi Fwd Exam Comprehensive
[2021-07-02 12:28] LABS: Basophils % 0.4 %; Eosinophils % 0.4 %; Hematocrit 37.9 % (37.0-47.0); Hemoglobin 12.6 g/dL (11.5-15.3); Mean Corpuscular HGB Conc 33.2 g/dL (30.0-36.0); Mean Corpuscular Hemoglobin 29.9 pg (28.0-34.0); Mean Corpuscular Volume 89.8 fl (81-99); Mean Platelet Volume 10.4 fL (7.4-10.4); Monocytes # 0.5 10^3/uL (0.2-0.9); Monocytes % 5.2 %; Neutrophils # 5.75 10^3/uL (1.8-7.7); Neutrophils % 61.9 %; Nucleated Red Blood Cells % 0 %; Platelet Count 350 10^3/cmm (130-400); Red Blood Count 4.22 10^6/uL (4.1-5.3); Red Cell Distribution Width 13.7 % (12.1-15.1); White Blood Count 9.3 10^3/uL (4.0-10.0)
--- NOTE | 2021-07-02 12:45 | PC.NURSE ---
pt on continuous spo2 nibp and cm.
--- NOTE | 2021-07-02 12:47 | PC.NURSE ---
BLOOD GLUCOSE 99
[2021-07-02 12:55] LABS: INR 0.95 (0.8-1.2)
[2021-07-02 13:02] LABS: Alanine Aminotransferase 12 U/L (0-33); Albumin Level 4.4 g/dL (3.5-5.2); Alkaline Phosphatase 72 IU/L (35-105); Anion Gap 19.6 (5-19); Aspartate Amino Transferase 12 U/L (0-32); Blood Urea Nitrogen 11 mg/dL (6-20); Calcium 8.8 mg/dL (8.5-10.5); Carbon Dioxide 21 mmol/L (22-29); Chloride 105 mmol/L (98-107); Globulin 2.3 g/dL (1.3-4.6); Glomerular Filtration Rate 74.5 mL/min (90-130); Glucose 99 mg/dL (65-115); Osmolality Calculated 293 mOsm/kg (285-295); Potassium 3.6 mmol/L (3.5-5.1); Sodium 142 mmol/L (136-145); Total Bilirubin 0.4 mg/dL (0.15-1.2); Total Protein 6.7 g/dL (6.6-8.7)
[2021-07-02] MEDS: iohexol 350 mg/mL 100 mL Btl IV (13:08)
[2021-07-02 13:17] LABS: Urine Appearance Clear (CLEAR); Urine Color Yellow (Yellow); pH Urine 6 (5-7)
[2021-07-02 13:19] LABS: Add Urine Microscopic? YES; Bilirubin Urine Neg (Negative); Blood Urine 2+ (Negative); Glucose Urine UA Norm (Normal); Ketones Urine Negative (Negative); Leukocyte Esterase Urine Negative (Negative); Nitrate Urine Negative (Negative); Protein Urine Neg (Negative); Urobilinogen Urine Norm (Negative)
[2021-07-02 13:24] LABS: Amphetamines Screen Urine Negative (Negative); Barbiturates Screen Urine Negative (Negative); Benzodiazepines Screen Urine Negative (Negative); Cocaine Screen Urine Negative (Negative); Opiate Screen Urine Negative (Negative); PCP Screen Urine Negative (Negative); THC Screen Urine Positive (Negative)
[2021-07-02 13:25] LABS: Add Urine Culture? No; RBC Urine 0-4 /hpf (0-2); Squamous Epithelial Cell Urine RARE /hpf (0-5)
--- NOTE | 2021-07-02 16:14 | USCV_ITS ---
Irma Stern Age: 55 Gender: F : 1965 Exam Date: 07/02/2021 16:39 Ordering Phys: Saman Bui MD Technologist: ADRIAN Exam Location: [facility] [place] Indication: CVA BP: 177 / 68 HR: 57 Rhythm: Sinus Technical Quality: Very technically difficult study MEASUREMENTS (Male / Female) Normal Values 2D ECHO RV Chamber Size 1.8 cm LVOT Diameter 1.9 cm LA Width 2.5 cm LA Height 4.4 cm RA Width 2.5 cm RA Height 2.8 cm M-MODE LV Diastolic Diameter MM 4.2 cm 4.2 - 5.9 / 3.9 - 5.3 cm LV Systolic Diameter MM 2.3 cm LV Ejection Fraction MM Teich 77.7 % IVS Diastolic Thickness MM 1.2 cm 0.6 - 1.0 / 0.6 - 0.9 cm IVS Systolic Thickness MM 1.3 cm LVPW Diastolic Thickness MM 1.3 cm 0.6 - 1.0 / 0.6 - 0.9 cm LVPW Systolic Thickness MM 1.6 cm RV Diastolic Diameter MM 0.9 cm DOPPLER AV Peak Velocity 123.0 cm/s LVOT Peak Velocity 95.0 cm/s AV Area Cont Eq vti 2.5 cm squared AV Area Cont Eq pk 2.2 cm squared MV Area PHT 3.9 cm squared Mitral E to A Ratio 1.5 MV E' Velocity 41.0 cm/s Mitral E to MV E' Ratio 7.5 Mitral E to LV E' Lateral Ratio 7.4 Mitral E to LV E' Septal Ratio 7.6 TR Peak Velocity 228.0 cm/s TR Peak Gradient 20.8 mmHg TV Peak E Velocity 36.0 cm/s Right Atrial Pressure 3.0 mmHg Pulmonary Artery Systolic Pressu 23.8 mmHg RV Acceleration Time 0.1 s RV Ejection Time 0.3 s RV AcT/ET 0.4 FINDINGS Left Ventricle Normal left ventricular size and systolic function, EF 60%. No gross wall motion normalities Right Ventricle Possibly of normal size and ejection fraction Right Atrium Possibly of normal size. Left Atrium Possibly of normal size Mitral Valve No gross abnormalities noted Aortic Valve No gross abnormalities noted Tricuspid Valve Mild tricuspid valve regurgitation. Pulmonic Valve Pulmonic valve not well visualized. Pericardium No pericardial effusion. Aorta Normal aortic annulus size. CONCLUSIONS Normal left ventricular size and systolic function, EF 60%. No gross wall motion normalities. Possibly normal cardiac chamber sizes. Mild tricuspid valve regurgitation. There is no pericardial effusion. There are no intracardiac masses. No previous study is available for comparison. Technically difficult study because of the poor ultrasonic window. Dr Lorenzo Pinto MD FACC (Electronically Signed) Final Date: 03 July 2021 09:41 S
--- NOTE | 2021-07-02 16:19 | PM.HP ---
Providers/Chief Complaint Primary Care Provider: Patrick Guevara MD Chief Complaint: possible stroke, weakness this am History of Present Illness Irma Stern is a 55 year old female with a past medical history hypertension, migraines, current smoker, who presents [facility] due to word finding difficulty. Patient stated that this morning she woke up, and she had trouble finding words, trouble expressing herself, no slurring of words no facial droop, no visual deficits, no paresthesias, no focal neurologic deficits, no weakness, no stumbling, no falls. No blurry vision. No neck pain. She came to [facility], after 6 hours and was ordered the TPA window, NIH stroke scale was 4, CT of the head no acute bleed, CTA of the head and neck shows a 2 mm right MCA aneurysm no evidence of bleed, she was seen in the emergency room, her productive aphasia has significant improved, persist to some degree, her response times are a bit delayed, continues to have some degree of word finding difficulty, no other focal neurologic deficits. Currently complaining of a migraine headache, has a long history of migraine headaches, will be given Reglan and Ultram. Review of Systems Const: Denies: fever(s), chills, fatigue or malaise Eyes: Denies: change in vision or blurry vision ENMT: Denies: nasal congestion Card: Denies: chest pain, palpitations or syncope Resp: Denies: dyspnea, productive cough, non-productive cough or wheezing GI: Denies: abdominal pain, nausea, vomiting, hematemesis, diarrhea, constipation, hematochezia or melena : Denies: flank pain, dysuria or urinary frequency Musc: Denies: neck pain or back pain Skin/Breast: Denies: rash Neuro: Reports: headache(s) and difficulty communicating thoughts; Denies: numbness in extremities, weakness in extremities, sensory changes, lack of coordination, difficulty walking, frequent falls, dizziness, vertigo, confusion, Slurred speech present, seizure-like activity or involuntary movements Psych: Denies: anxiety Endo: Denies: polyuria or polydipsia Medications/Allergies Home Medications Medication Instructions Recorded Confirmed Last Taken Type amlodipine 5 mg PO DAILY #30 tab 01/06/20 07/02/21 07/01/21 Rx lisinopril 20 mg PO DAILY 01/06/20 07/02/21 07/02/21 History nitroglycerin 0.4 mg SUBLINGUAL PRN 01/06/20 07/02/21 Unknown History trazodone 50 mg PO BEDTIME 01/06/20 07/02/21 07/01/21 History aspirin 81 mg PO BEDTIME 07/02/21 07/02/21 07/01/21 History duloxetine 30 mg PO BEDTIME 07/02/21 07/02/21 07/01/21 History Allergies Allergy/AdvReac Type Severity Reaction Status Date / Time codeine Allergy Unknown Verified 01/06/20 11:58 PFSH Acute PFSH: Medical History (Updated 07/02/21 @ 14:46 by Benigno Zheng DO) Hypertension Migraines Surgical History H/O: hysterectomy History of oophorectomy Family History (Updated 07/02/21 @ 16:23 by Saman Bui MD) Mother Liver failure Father CAD (coronary artery disease) Social History (Updated 07/02/21 @ 16:23 by Saman Bui MD) Smoking and tobacco status: current every day smoker Alcohol intake: never Substance/Drug Use: never Vitals/I&O/Wt Last Vital Signs Temp 98.5 F 07/02/21 11:42 Pulse 85 07/02/21 11:42 Resp 20 H 07/02/21 11:42 BP 177/68 07/02/21 11:42 Pulse Ox 100 07/02/21 11:42 Physical Exam Const: COMMON NORMALS: no acute distress and patient oriented x3 GENERAL APPEARANCE: cooperative and comfortable HENMT: COMMON NORMALS: normocephalic HEAD & SCALP: normocephalic Eye: COMMON NORMALS: Equal, round and reactive pupils present and EOMs intact bilaterally GENERAL EYE: appearance normal, both eyes and all related structures PUPIL: Yes Equal, round and reactive pupils present Neck/C-Spine: COMMON NORMALS: full ROM and no lymphadenopathy THYROID: Thyroid normal Lymph: LYMPHATIC: no lymphadenopathy noted Resp: COMMON NORMALS: normal respiratory effort, No retractions, No use of accessory muscles and clear to auscultation bilaterally AUSCULTATION: clear to auscultation bilaterally Cardio: COMMON NORMALS: regular rate, regular rhythm, S1 normal heart sound present, S2 normal heart sound present, No gallops present (Cardio), No clicks present (Cardio) and No murmurs present (Cardio) RATE: regular rate RHYTHM: regular rhythm HEART SOUNDS: S1 normal heart sound present and S2 normal heart sound present GI: COMMON NORMALS: Normal to inspection, nondistended, normoactive bowel sounds present, Soft to palpation, non-tender and No hepatosplenomegaly present PALPATION: Yes Soft to palpation and Yes No hepatosplenomegaly present Extremity: COMMON NORMALS: normal to inspection, full ROM and no pedal edema Neuro: COMMON NORMALS: patient oriented x3, CN's II-XII intact bilaterally, moves all extremities, no focal motor deficits and no sensory deficits noted SENSORIUM/ORIENTATION: Yes alert, Yes oriented to person, Yes oriented to place and Yes oriented to time COORDINATION/BALANCE: [id number] test normal SPEECH: expressive aphasia MOTOR EXAM: 5/5 motor strength present throughout COORDINATION: [id number] test normal Psych: COMMON NORMALS: mental status grossly normal, Normal thought process present and cooperative THOUGHT PROCESS: Normal thought process present Data : 07/02/21 12:00 07/02/21 12:00 A&P Assessment and plan (1) Cerebrovascular accident: -CT of the head no acute stroke -CT of the head and neck 2 mm right MCA bifurcation aneurysm -Admit to medical floors -Allow for permissive hypertension, will treat if systolic blood pressure greater than 220 or diastolic in the 120 -Neurochecks -PT OT speech therapy eval -IV fluids -Aspirin, statin, Plavix -Cardiac echo, telemetry monitoring, TSH -Full code -Lovenox for DVT prophylaxis Status: Acute (2) Hypertension: Status: Acute Attestations Medical Necessity Statement*: Patient requires hospitalization for CVA, outpatient with observation Coding Level of Care Code Acute Sas Programmer Remote for [facility] Diagnoses Cerebrovascular accident I63.9 Hypertension I10
[2021-07-02] MEDS: TRAMadol 50 mg Tablet PO (16:45)
[2021-07-02] MEDS: metoclopramide 5 mg/mL SDV 2 mL IVP (16:45)
[2021-07-02 17:17] LABS: Thyroid Stimulating Hormone 0.67 uIU/mL (0.27-4.20)
[2021-07-02] MEDS: aspirin 81 mg EC Tablet PO (17:20)
[2021-07-02] MEDS: clopidogrel 75 mg Tablet PO (17:20)
[2021-07-02] MEDS: enoxaparin 40 mg/0.4 mL Syringe SUBCUT (17:21)
[2021-07-02] MEDS: sodium chloride 0.9% 1,000 ML 75 ML IV (17:22)
[2021-07-02 17:29] LABS: Estmated Average Glucose 128; Hemoglobin A1C 6.1 % (4.0-6.0)
[2021-07-02 20:00] VITALS: BP 137/78; PULSE 58; RESP 18; TEMP 36.4; O2SAT 95
[2021-07-02] MEDS: atorvastatin 40 mg Tablet PO (20:12)
[2021-07-02 20:15] VITALS: BP 137/78; PULSE 58; RESP 18; TEMP 36.4
[2021-07-02 21:23] VITALS: BMI 20.9
[2021-07-02] MEDS: trazodone 50 mg Tablet PO (21:58)
[2021-07-02 22:00] VITALS: PULSE 61
[2021-07-03] VITALS: BP 110/61; PULSE 61; PULSE 65; RESP 18
[2021-07-03 04:00] VITALS: BP 142/83; PULSE 72; RESP 19; TEMP 36.9; O2SAT 99
[2021-07-03] MEDS: acetaminophen 325 mg Tablet 650 MG PO (04:07)
[2021-07-03 06:00] VITALS: PULSE 63
[2021-07-03 06:28] LABS: Basophils # 0.1 10^3/uL (0.0-0.1); Basophils % 0.8 %; Eosinophils # 0.1 10^3/uL (0.0-0.8); Eosinophils % 1.2 %; Hematocrit 33.6 % (37.0-47.0); Hemoglobin 10.9 g/dL (11.5-15.3); Lymphocytes # 3.9 10^3/uL (0.8-4.8); Lymphocytes % 58.4 %; Mean Corpuscular HGB Conc 32.4 g/dL (30.0-36.0); Mean Corpuscular Hemoglobin 29.4 pg (28.0-34.0); Mean Corpuscular Volume 90.6 fl (81-99); Mean Platelet Volume 10.6 fL (7.4-10.4); Monocytes # 0.4 10^3/uL (0.2-0.9); Monocytes % 5.8 %; Neutrophils # 2.22 10^3/uL (1.8-7.7); Neutrophils % 33.6 %; Nucleated Red Blood Cells % 0 %; Platelet Count 262 10^3/cmm (130-400); Red Blood Count 3.71 10^6/uL (4.1-5.3); Red Cell Distribution Width 13.7 % (12.1-15.1); White Blood Count 6.6 10^3/uL (4.0-10.0)
[2021-07-03 06:31] LABS: Glucose Point of Care 89 mg/dL (70-110)
[2021-07-03 06:56] LABS: Anion Gap 17.3 (5-19); Blood Urea Nitrogen 14 mg/dL (6-20); Calcium 8.3 mg/dL (8.5-10.5); Carbon Dioxide 21 mmol/L (22-29); Chloride 105 mmol/L (98-107); Glomerular Filtration Rate 103.8 mL/min (90-130); Glucose 83 mg/dL (65-115); Osmolality Calculated 290 mOsm/kg (285-295); Potassium 3.3 mmol/L (3.5-5.1); Sodium 140 mmol/L (136-145)
[2021-07-03 08:13] VITALS: BP 121/77; PULSE 53; RESP 16; TEMP 36.8; O2SAT 97
[2021-07-03] MEDS: aspirin 81 mg EC Tablet PO (08:26)
[2021-07-03] MEDS: pantoprazole DR 40 mg Tablet PO (08:27)
[2021-07-03] MEDS: clopidogrel 75 mg Tablet PO (08:27)
[2021-07-03] MEDS: sodium chloride 0.9% 1,000 ML 75 ML IV (08:32)
--- NOTE | 2021-07-03 10:04 | PC.OT ---
OT EVALUATION ORDERS RECEIVED. OT SCREEN COMPLETED. PATIENT WAS SEEN WALKING IN HER ROOM INDEPENDENTLY, TRANSFERRING IN/OUT OF BED. NO OTHER DEFICITS NOTED AT THIS TIME.
[2021-07-03 11:52] VITALS: BP 134/70; PULSE 56; RESP 18; TEMP 36.7; O2SAT 97
--- NOTE | 2021-07-03 11:56 | P.DS_ITS ---
Discharge Providers Date of Admission: 07/02/21 14:49 Date of Discharge: July 03, 2021 Attending Provider at Admission: Saman Bui MD Attending Provider at Discharge: Saman Bui MD Primary Care Provider: Patrick Guevara MD Diagnoses at Discharge Discharge Diagnosis (1) Cerebrovascular accident: Status: Acute (2) Hypertension: Status: Acute Reason for Visit Reason for Visit: possible stroke, weakness this am Hospital Course Hospital Course Irma Stern is a 55 year old female with a past medical history hypertension, migraines, current smoker, who presents [facility] due to word finding difficulty. 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 Patient was clinically monitored, word finding difficulty improved back to baseline before discharge. Discharged on aspirin, Plavix for total of 21 days, atorvastatin, resuming blood pressure medications tomorrow, follow-up with neurology in 1 month, was advised if she had recurrent strokelike symptoms, call 911. Patient was advised to stop smoking. For her prediabetes, discussed with primary care provider of Metformin or Ozempic For her 2 mm MCA bifurcation aneurysm, follow-up with neurosurgery in [place] in 1 month, she was advised she had a significant headache out of the ordinary, worst headache of her life go to the emergency room due to life- threatening nature of aneurysm rupture. Advised to quit smoking. Physical Exam Const: COMMON NORMALS: no acute distress and patient oriented x3 Resp: COMMON NORMALS: normal respiratory effort, No retractions, No use of accessory muscles and clear to auscultation bilaterally AUSCULTATION: clear to auscultation bilaterally Cardio: COMMON NORMALS: regular rate, regular rhythm, S1 normal heart sound present and S2 normal heart sound present RATE: regular rate RHYTHM: regular rhythm HEART SOUNDS: S1 normal heart sound present and S2 normal heart sound present GI: COMMON NORMALS: Normal to inspection, nondistended, normoactive bowel sounds present, Soft to palpation and non-tender PALPATION: Yes Soft to palpation Extremity: COMMON NORMALS: no pedal edema Neuro: COMMON NORMALS: patient oriented x3, CN's II-XII intact bilaterally, moves all extremities, no focal motor deficits and no sensory deficits noted COORDINATION/BALANCE: [id number] test normal GAIT: Yes Normal gait present MOTOR EXAM: 5/5 motor strength present throughout COORDINATION: [id number] test normal Psych: COMMON NORMALS: mental status grossly normal Discharge Data Data Completed and Pending: Completed Studies During Hospitalization Category Date Time Status CT angio headneck * [id number] Stat Cat Scan 07/02/21 12:[address] head wo con* [id number] Stat Cat Scan 07/02/21 12:15 Completed CV. echo complete * [id number] Routine Ultrasound 07/02/21 16:14 Completed Pending at discharge Category Date Time Status Basic Metabolic P tomy AM LABS Lab 07/04/21 04:00 Ordered Basic Metabolic P tomy AM LABS Lab 07/05/21 04:00 Ordered Complete Blood Co unt w/Auto AM LABS Lab 07/04/21 04:00 Ordered Complete Blood Co unt w/Auto AM LABS Lab 07/05/21 04:00 Ordered Labs from last 24 hours 07/03/21 07/03/21 07/03/21 06:22 04:57 04:57 WBC 6.6 RBC 3.71 L Hgb 10.9 L Hct 33.6 L MCV 90.6 MCH 29.4 MCHC 32.4 RDW 13.7 Plt Count 262 MPV 10.6 H Neut % (Auto) 33.6 Lymph % (Auto) 58.4 Evans % (Auto) 5.8 Eos % (Auto) 1.2 Baso % (Auto) 0.8 Neut # (Auto) 2.22 Lymph # (Auto) 3.9 Evans # (Auto) 0.4 Eos # (Auto) 0.1 Baso # (Auto) 0.1 Nucleated RBC % (a uto) 0 Nucleated RBCs # 0.0 PT INR APTT Specimen Type Sample Site ABG pH ABG pCO2 ABG pO2 ABG HCO3 ABG O2 Saturation ABG Base Excess Zeyad Test A-a O2 Gradient Hematocrit Hgb O2 Saturation Carboxyhemoglobin Methemoglobin Total Hemoglobin Sodium 140 Potassium 3.3 L Glucose 83 Ionized Calcium O2 Delivery Device FiO2 Economics Teacher ID Chloride 105 Carbon Dioxide 21 L Anion Gap 17.3 BUN 14 Creatinine 0.6 GFR Calculation 103.8 POC Glucose 89 Estimat Average Gl ucose Hemoglobin A1c Calculated Osmolal ity 290 Calcium 8.3 L Total Bilirubin AST ALT Alkaline Phosphata se Total Protein Albumin Globulin TSH Urine Color Urine Appearance Urine pH Ur Specific Gravit y Urine Protein Urine Glucose (UA) Urine Ketones Urine Blood Urine Nitrate Urine Bilirubin Urine Urobilinogen Ur Leukocyte [place] ase Urine RBC Urine WBC Ur Squamous Epith Cells Amorphous Sediment Urine Bacteria Urine Opiates Scre en Ur Barbiturates Sc reen Ur Phencyclidine S crn Ur Amphetamines Sc reen U Benzodiazepines Scrn Urine Cocaine Scre en U Marijuana (THC) Screen 07/02/21 07/02/21 07/02/21 12:00 12:00 12:00 WBC RBC Hgb Hct MCV MCH MCHC RDW Plt Count MPV Neut % (Auto) Lymph % (Auto) Evans % (Auto) Eos % (Auto) Baso % (Auto) Neut # (Auto) Lymph # (Auto) Evans # (Auto) Eos # (Auto) Baso # (Auto) Nucleated RBC % (a uto) Nucleated RBCs # PT INR APTT Specimen Type Sample Site ABG pH ABG pCO2 ABG pO2 ABG HCO3 ABG O2 Saturation ABG Base Excess Zeyad Test A-a O2 Gradient Hematocrit Hgb O2 Saturation Carboxyhemoglobin Methemoglobin Total Hemoglobin Sodium 142 Potassium 3.6 Glucose 99 Ionized Calcium O2 Delivery Device FiO2 Economics Teacher ID Chloride 105 Carbon Dioxide 21 L Anion Gap 19.6 H BUN 11 Creatinine 0.8 GFR Calculation 74.5 L POC Glucose Estimat Average Gl ucose 128 Hemoglobin A1c 6.1 H Calculated Osmolal ity 293 Calcium 8.8 Total Bilirubin 0.4 AST 12 ALT 12 Alkaline Phosphata se 72 Total Protein 6.7 Albumin 4.4 Globulin 2.3 TSH 0.67 Urine Color Urine Appearance Urine pH Ur Specific Gravit y Urine Protein Urine Glucose (UA) Urine Ketones Urine Blood Urine Nitrate Urine Bilirubin Urine Urobilinogen Ur Leukocyte [place] ase Urine RBC Urine WBC Ur Squamous Epith Cells Amorphous Sediment Urine Bacteria Urine Opiates Scre en Ur Barbiturates Sc reen Ur Phencyclidine S crn Ur Amphetamines Sc reen U Benzodiazepines Scrn Urine Cocaine Scre en U Marijuana (THC) Screen 07/02/21 07/02/21 07/02/21 12:00 12:00 11:51 WBC 9.3 RBC 4.22 Hgb 12.6 Hct 37.9 MCV 89.8 MCH 29.9 MCHC 33.2 RDW 13.7 Plt Count 350 MPV 10.4 Neut % (Auto) 61.9 Lymph % (Auto) 32.0 Evans % (Auto) 5.2 Eos % (Auto) 0.4 Baso % (Auto) 0.4 Neut # (Auto) 5.75 Lymph # (Auto) 3.0 Evans # (Auto) 0.5 Eos # (Auto) 0.0 Baso # (Auto) 0.0 Nucleated RBC % (a uto) 0 Nucleated RBCs # 0.0 PT 12.90 INR 0.95 APTT 28.0 Specimen Type Arterial Sample Site Radial, left ABG pH 7.46 H ABG pCO2 33.8 L ABG pO2 62.6 L ABG HCO3 24.2 ABG O2 Saturation 94.7 ABG Base Excess 0.9 Zeyad Test Pos A-a O2 Gradient 5.6 Hematocrit 37.9 Hgb O2 Saturation 88.3 L Carboxyhemoglobin 5.7 Methemoglobin 1.0 Total Hemoglobin 12.4 Sodium 143.0 Potassium 3.4 L Glucose 105.0 Ionized Calcium 1.2 O2 Delivery Device Room air FiO2 21.0 Economics Teacher ID [place] Chloride Carbon Dioxide Anion Gap BUN Creatinine GFR Calculation POC Glucose Estimat Average Gl ucose Hemoglobin A1c Calculated Osmolal ity Calcium Total Bilirubin AST ALT Alkaline Phosphata se Total Protein Albumin Globulin TSH Urine Color Urine Appearance Urine pH Ur Specific Gravit y Urine Protein Urine Glucose (UA) Urine Ketones Urine Blood Urine Nitrate Urine Bilirubin Urine Urobilinogen Ur Leukocyte [place] ase Urine RBC Urine WBC Ur Squamous Epith Cells Amorphous Sediment Urine Bacteria Urine Opiates Scre en Ur Barbiturates Sc reen Ur Phencyclidine S crn Ur Amphetamines Sc reen U Benzodiazepines Scrn Urine Cocaine Scre en U Marijuana (THC) Screen 07/02/21 07/02/21 11:22 11:22 WBC RBC Hgb Hct MCV MCH MCHC RDW Plt Count MPV Neut % (Auto) Lymph % (Auto) Evans % (Auto) Eos % (Auto) Baso % (Auto) Neut # (Auto) Lymph # (Auto) Evans # (Auto) Eos # (Auto) Baso # (Auto) Nucleated RBC % (a uto) Nucleated RBCs # PT INR APTT Specimen Type Sample Site ABG pH ABG pCO2 ABG pO2 ABG HCO3 ABG O2 Saturation ABG Base Excess Zeyad Test A-a O2 Gradient Hematocrit Hgb O2 Saturation Carboxyhemoglobin Methemoglobin Total Hemoglobin Sodium Potassium Glucose Ionized Calcium O2 Delivery Device FiO2 Economics Teacher ID Chloride Carbon Dioxide Anion Gap BUN Creatinine GFR Calculation POC Glucose Estimat Average Gl ucose Hemoglobin A1c Calculated Osmolal ity Calcium Total Bilirubin AST ALT Alkaline Phosphata se Total Protein Albumin Globulin TSH Urine Color Yellow Urine Appearance Clear Urine pH 6 Ur Specific Gravit y 1.010 Urine Protein Neg Urine Glucose (UA) Norm Urine Ketones Negative Urine Blood 2+ H Urine Nitrate Negative Urine Bilirubin Neg Urine Urobilinogen Norm Ur Leukocyte [place] ase Negative Urine RBC 0-4 H Urine WBC None Ur Squamous Epith Cells Rare Amorphous Sediment Not Reportable Urine Bacteria None Urine Opiates Scre en Negative Ur Barbiturates Sc reen Negative Ur Phencyclidine S crn Negative Ur Amphetamines Sc reen Negative U Benzodiazepines Scrn Negative Urine Cocaine Scre en Negative U Marijuana (THC) Screen Positive H Vitals: Last Vital Signs Temp 98.1 F 07/03/21 11:52 Pulse 56 L 07/03/21 11:52 Resp 18 07/03/21 11:52 BP 134/70 07/03/21 11:52 Pulse Ox 97 07/03/21 11:52 Discharge Plan Discharge Patient Disposition: Home Condition: Stable Prescriptions: New clopidogrel 75 mg Tablet 75 mg PO DAILY 20 Days Qty: 20 RF: 0 atorvastatin 40 mg Tablet 40 mg PO BEDTIME 30 Days Qty: 30 RF: 0 Continued trazodone 50 mg tablet 50 mg PO BEDTIME RF: 0 nitroglycerin 0.4 mg tablet, sublingual 0.4 mg sublingual PRN RF: 0 duloxetine 30 mg capsule,delayed release(DR/EC) 30 mg PO BEDTIME RF: 0 Changed aspirin 81 mg tablet,delayed release (DR/EC) 81 mg PO BEDTIME 30 Days Qty: 30 RF: 0 Held lisinopril 20 mg tablet 20 mg PO DAILY RF: 0 Hold Instructions: Resume on 07/04/21. amlodipine 5 mg tablet 5 mg PO DAILY Qty: 30 RF: 0 Hold Instructions: Resume on 07/04/21. Discharge Orders: Discharge Order (Routine); Ordered 07/03/21 Ordered By: Saman Bui Referrals: Monique Allison MD [Physician] - 1 month Hema Smith MD [Referring] - 1 month (aneurysm) Patrick Guevara MD [Primary Care Provider] - 1-3 days Discharge Diet: Cardiac Discharge Activity: Resume usual activity Patient Instructions: Opioid Safety Activity Restrictions/Additional Instructions: -Please hold blood pressure medications until tomorrow -Please continue aspirin 81 mg indefinitely -Please take Plavix 75 mg once daily for the next 20 days, then stop -Please take atorvastatin 40 mg once daily indefinitely -Please monitor for bloody or black stools if so go to the emergency room -Your hemoglobin A1c 6.1, discussed with primary care provider about Metformin or Ozempic -Please stop smoking -If you have recurrent strokelike symptoms call 911 -Follow-up with primary care provider in 1 week Discharge Attestations Time Spent in Discharge Care*: less than 30 min Quality Metrics Clinical Quality Measures During this hospital stay, did patient experience: Stroke Contraindication to Antithrombotic: Antithrombotic prescribed Contraindication to Anticoagulation: Overlap treatment not indicated Contraindication to Statin: Statin prescribed Coding Level of Care Code Acute g DC note Exam Detailed Diagnoses Cerebrovascular accident I63.9 Hypertension I10
== END 2021-07-03 12:45 | disposition home or self-care (01) ==
LOC: ER 14:46 → CSU 17:32 → MEDSURG 07-03 11:55 → CSU 07-03 12:02 → MEDSURG 07-03 12:02
PROVIDERS: Admitting Provider Family Medicine; Emergency Provider Family Medicine; PCP Family Medicine; Visit Provider Family Medicine
DX: I63.9 Cerebral infarction, unspecified (principal); I10 Essential (primary) hypertension; R29.704 NIHSS score 4
CPT/HCPCS: 36415; 36416; 36600; 70450; 70496; 70498; 80048; 80051; 80053; 80306; 81001; 82330; 82805; 82962; 83036; 84443; 85025; 85610; 85730; 92523; 93005; 93306; 96372; 97161; 99285; G0378; J1650; J2765; J7030; Q9967

== ENCOUNTER 2022-12-21 10:08 | Outpatient (CLI) | payer OTHER, SELFPAY ==
--- NOTE | 2022-12-21 10:37 | CT_ITS ---
WS: [id number] LDCT LUNG CANCER SCREENING TECHNIQUE: Noncontrast CT of the chest with coronal and sagittal reformatted images. CLINICAL INFORMATION: NICOTINE DEPENDENCE, CIGARETTES, UNCOMPLICATED COMPARISON: None. DLP: 45.30 mGy.cm DIvol: Mean CTDIvol: 0.60 (mGy) All CT scans at [facility] use at least one of these dose optimization techniques: automat ed exposure control; mA and/or kV adjustment per patient size (includes targeted exams where dose is matched to clinical indication); or iterative reconstruction. FINDINGS: Lungs are well aerated. No acute pulmonary infiltrates. No suspicious pulmonary parenchymal opacities. Small calcified RIGHT thyroid nodule. Aortic calcification. No mediastinal or hilar lymphadenopathy. No axillary lymphadenopathy. Tiny esophageal hiatal hernia. Adrenal glands are normal. Mild thoracic curve. Mild thoracic kyphosis. Anterior hypertrophic changes thoracic spine. CT/CT lung screening [id number] IMPRESSION: LUNG-RADS: 1-Negative FOLLOW UP: 12 Month: Continue annual screening with LDCT
--- NOTE | 2022-12-21 10:41 | MM_ITS ---
WS: [id number] BILATERAL SCREENING DIGITAL TOMOSYNTHESIS MAMMOGRAM WITH CAD HISTORY: SCREENING COMPARISON: 01/16/2017 and 12/08/2011 Bilateral CC and MLO views with tomosynthesis and synthetic mammography submitted. Computer aided det ection analyzed. Breast composition: There are scattered areas of fibroglandular density. No suspicious masses, microc alcifications or architectural distortion. Benign LEFT breast calcification. MM/[place] [id number] IMPRESSION: BI-RADS: 2-Benign FOLLOW UP: 1 Year Follow-up
== END 2022-12-21 10:09 | disposition home or self-care (01) ==
PROVIDERS: PCP Family Medicine; Visit Provider Family Medicine
DX: Z12.31 Encounter for screening mammogram for malignant neoplasm of breast (principal); F17.210 Nicotine dependence, cigarettes, uncomplicated
CPT/HCPCS: 71271; 77063; 77067

== ENCOUNTER 2023-03-03 09:20 | Emergency (ER) | payer OTHER, SELFPAY ==
[2023-03-03 09:24] VITALS: BP 118/72; PULSE 96; RESP 16; TEMP 36.6; O2SAT 96; BMI 23.1
--- NOTE | 2023-03-03 09:34 | CTR_ITS ---
PROCEDURE INFORMATION: Exam: CT Abdomen And Pelvis With Contrast Exam date and time: 03/03/2023 10:03 AM Age: 57 years old Clinical indication: Abdominal pain; Generalized; Additional info: Abd pain TECHNIQUE: Imaging protocol: Computed tomography of the abdomen and pelvis with contrast. Radiation optimization: All CT scans at this facility use at least one of these dose optimization techniques: automated exposure control; mA and/or kV adjustment per patient size (includes targeted exams where dose is matched to clinical indication); or iterative reconstruction. Contrast material: OMNI 350; Contrast volume: 100 ml; Contrast route: INTRAVENOUS (IV); REPORTING DATA: Count of CT and Cardiac NM exams in prior 12 months: This patient has received [address] and 0 known cardiac nuclear medicine studies in the 12 months prior to the current study. COMPARISON: CR XR hip LT 2-3V wo/w pel* [id number] 12/01/2022 12:30 PM RADIATION DOSE METRICS: Total DLP (mGy-cm): 333.7 FINDINGS: Liver: The liver is normal in size and contour. Gallbladder and bile ducts: The gallbladder appears unremarkable. No intra- or extra-hepatic biliary ductal dilatation. Pancreas: The pancreas appears normal. Spleen: The spleen appears normal. Adrenal glands: The adrenals appear normal. Kidneys and ureters: Benign-appearing fluid density simple appearing cyst in the upper pole the left kidney. Stomach and bowel: The stomach is unremarkable. The small bowel loops are not abnormally dilated. The large bowel loops are not abnormally dilated. Appendix: The appendix measures at the upper limits of normal and is filled with dense material. No periappendiceal fat stranding or fluid identified. No definitive wall thickening. No significant signs of appendicitis. Intraperitoneal space: No ascites or significant fluid collection. Vasculature: The aorta is nonaneurysmal. The IVC appears normal. Lymph nodes: There are no enlarged lymph nodes. Urinary bladder: The bladder is distended and demonstrates no focal contour abnormality. Reproductive: Unremarkable as visualized. Bones/joints: Unremarkable. Soft tissues: Unremarkable. CT/CT abdomen pelvis w con* [id number] IMPRESSION: No acute abdominopelvic abnormality identified. COMMENTS: Consistent with the [employer]'s Incidental Findings Committee white paper (J Am Easton Radiol 2018): Any incidental renal lesion less than 1 cm or classified as too small to characterize, or any incidental cystic renal lesion characterized as simple-appearing, is likely benign. No follow-up imaging is recommended for these lesions per consensus recommendations based on imaging criteria.
--- NOTE | 2023-03-03 09:36 | ECG_ITS ---
[facility] Test Date: 2023-03-03 Pat Name: Irma Stern Department: Room: Gender: Female A/C Tech: : 1965 Requested By: Benigno Main Order Number: [id number] Dann MD: Jeremy Winchester Measurements Intervals [place] Rate: 65 P: 67 ID: [id number] QRS: 20 QRSD: 72 T: 69 QT: 373 QTc: 390 Interpretive Statements SINUS RHYTHM Compared to ECG 07/02/2021 13:10:17 No significant changes Electronically Signed On 03-03-2023 15:55:05 CDT by Jeremy Winchester [email or web address]
[2023-03-03 09:48] VITALS: BP 143/75; PULSE 76; RESP 18; O2SAT 97
[2023-03-03 09:59] LABS: Basophils % 0.2 %; Eosinophils % 0.1 %; Hematocrit 39.4 % (36-47); Lymphocytes # 1.8 10^3/uL (0.8-4.8); Lymphocytes % 13.5 %; Mean Corpuscular HGB Conc 33.8 g/dL (30-55); Mean Corpuscular Hemoglobin 30.2 pg (27-33); Mean Corpuscular Volume 89.3 fl (85-98); Mean Platelet Volume 9.6 fL (7.4-10.4); Monocytes # 0.3 10^3/uL (0.2-0.9); Monocytes % 2.4 %; Neutrophils # 11.37 10^3/uL (1.8-7.7); Neutrophils % 83.5 %; Nucleated Red Blood Cells % 0 %; Platelet Count 341 10^3/cmm (157-399); Red Blood Count 4.41 10^6/uL (3.85-5.65); Red Cell Distribution Width 13.8 % (12.1-15.1); White Blood Count 13.62 10^3/uL (3.29-11.43)
[2023-03-03] MEDS: iohexol 350 mg/mL 500 mL Btl (per mL) IV (10:07)
--- NOTE | 2023-03-03 10:10 | W.ED.ABDPA2 ---
HPI - Abdominal Pain General: Chief Complaint: Abdominal Pain Stated Complaint: NV/Constipation Time Seen by Provider: 03/03/23 09:34 Source: patient Mode of arrival: ambulatory History of Present Illness: 57-year-old female presents emergency room after waking up this morning and having several loose stools she describes as very dark. No bright red blood. She a lot of abdominal cramping localizes to the suprapubic region. No previous history of diverticular disease, no upper or lower GI bleeds in the past she does not take iron or use Pepto-Bismol. Pain has improved. She denies any dysuria urgency or frequency or hematuria. MD elicited complaint: abdominal pain Location: Suprapubic Quality: cramping Associated Symptoms: Reports change in stool character and loose stools; Denies anorexia, belching, bloating, change in bowel habits, chills, coffee ground emesis, constipation, GI cramping, diarrhea, dyspepsia, dysuria, excessive flatus, fever(s), heartburn, hematochezia, hematuria, hematemesis, fecal incontinence, melena, nausea, poor appetite, syncope and vomiting Review of Systems Const: Denies: fever(s) or chills ENMT: Denies: throat pain, ear or mastoid pain, nasal discharge or nasal congestion Card: Denies: syncope Resp: Denies: dyspnea, productive cough or non-productive cough GI: Reports: change in stool character; Denies: nausea, vomiting, hematemesis, coffee ground emesis, heartburn, diarrhea, constipation, bloating, GI cramping, belching, excessive flatus, fecal incontinence, change in bowel habits, hematochezia or melena : Denies: dysuria or hematuria Skin/Breast: Denies: rash or pruritus PFSH ED PFSH: Medical History Hypertension Migraines Surgical History H/O: hysterectomy History of oophorectomy Family History Mother Liver failure Father CAD (coronary artery disease) Social History Smoking and tobacco status: current every day smoker Alcohol intake: never Substance/Drug Use: never Physical Exam Const: GENERAL APPEARANCE: cooperative and comfortable ORIENTATION/CONSCIOUSNESS: Yes awake, Yes oriented to person, Yes oriented to place and Yes oriented to time HENMT: COMMON NORMALS: normocephalic, atraumatic, hearing grossly normal bilaterally, external ears normal, EAC's normal, TM's normal bilaterally, Normal nasal mucous membranes and turbinates present, moist oral mucous membranes and oropharynx normal HEAD & SCALP: normocephalic and atraumatic NOSE: Normal nasal mucous membranes and turbinates present EXTERNAL EAR: Yes external ears normal EXTERNAL AUDITORY CANAL: EAC's normal TYMPANIC MEMBRANE: TM's normal bilaterally Eye: COMMON NORMALS: Equal, round and reactive pupils present, EOMs intact bilaterally, conjunctivae normal and no scleral icterus CONJUNCTIVA: Yes conjunctivae normal PUPIL: Yes Equal, round and reactive pupils present Neck/C-Spine: COMMON NORMALS: full ROM, no lymphadenopathy, supple and no JVD Lymph: LYMPHATIC: no lymphadenopathy noted and no lymphedema noted Resp: COMMON NORMALS: normal respiratory effort, No retractions, No use of accessory muscles and clear to auscultation bilaterally AUSCULTATION: clear to auscultation bilaterally Cardio: COMMON NORMALS: no JVD, regular rate, regular rhythm and No murmurs present (Cardio) RATE: regular rate RHYTHM: regular rhythm GI: COMMON NORMALS: Soft to palpation and No hepatosplenomegaly present AUSCULTATION: Yes normoactive bowel sounds PALPATION: Yes Soft to palpation, No Tenderness to palpation present (GI), No Guarding due to palpation present (GI) and Yes No hepatosplenomegaly present OTHER: Rectal exam moderately dark and stool Hemoccult negative no masses normal rectal sphincter tone Extremity: COMMON NORMALS: normal to inspection, capillary refill normal, no clubbing, cyanosis or edema, no calf tenderness and no pedal edema Neuro: SENSORIUM/ORIENTATION: Yes oriented to person, Yes oriented to place and Yes oriented to time Skin: COMMON NORMALS: no rashes or lesions noted GENERAL SKIN EXAM: no rashes or lesions noted Course Vital Signs: Vital signs: Vital Signs Temperature 97.9 F 03/03/23 09:24 Pulse Rate 76 03/03/23 09:48 Respiratory Rate 18 03/03/23 09:48 Blood Pressure 143/75 03/03/23 09:48 Pulse Oximetry 97 03/03/23 09:48 Oxygen Delivery Me thod Room Air 03/03/23 09:48 MDM - Abdominal Pain Medical Decision Making Rectal exam done Hemoccult negative. Labs and imaging reviewed no acute findings. May does have some mild gastro enteritis she has a very slight elevation of her white count no evidence of diverticulitis. Her abdominal exam is benign hemoglobin stable no signs of upper GI bleed no bright red blood per rectum. Supportive cares observe recheck for any worsening or changes symptoms. Medical Records I reviewed the patient's medical records. Lab Data I reviewed the patient's lab results. 03/03/23 09:48 03/03/23 09:48 Labs/Radiology: Radiology Impressions Abdomen/Pelvis CT 03/03/23 09:34 IMPRESSION: No acute abdominopelvic abnormality identified. COMMENTS: Consistent with the [employer] [place] [employer]'s Incidental Findings Committee white paper (J Am Easton Radiol 2018): Any incidental renal lesion less than 1 cm or classified as too small to characterize, or any incidental cystic renal lesion characterized as simple-appearing, is likely benign. No follow-up imaging is recommended for these lesions per consensus recommendations based on imaging criteria. Laboratory Results WBC 13.62 10^3/uL (3.29-11.43) H 03/03/23 09:48 RBC 4.41 10^6/uL (3.85-5.65) 03/03/23 09:48 Hgb 13.30 g/dL (11.27-16.99) 03/03/23 09:48 Hct 39.4 % (36-47) 03/03/23 09:48 MCV 89.3 fl (85-98) 03/03/23 09:48 MCH 30.2 pg (27-33) 03/03/23 09:48 MCHC 33.8 g/dL (30-55) 03/03/23 09:48 RDW 13.8 % (12.1-15.1) 03/03/23 09:48 Plt Count 341 10^3/cmm (157-399) 03/03/23 09:48 MPV 9.6 fL (7.4-10.4) 03/03/23 09:48 Neut % (Auto) 83.5 % 03/03/23 09:48 Lymph % (Auto) 13.5 % 03/03/23 09:48 [place] % (Auto) 2.4 % 03/03/23 09:48 Eos % (Auto) 0.1 % 03/03/23 09:48 Baso % (Auto) 0.2 % 03/03/23 09:48 Neut # (Auto) 11.37 10^3/uL (1.8-7.7) H 03/03/23 09:48 Lymph # (Auto) 1.8 10^3/uL (0.8-4.8) 03/03/23 09:48 [place] # (Auto) 0.3 10^3/uL (0.2-0.9) 03/03/23 09:48 Eos # (Auto) 0.0 10^3/uL (0.0-0.8) 03/03/23 09:48 Baso # (Auto) 0.0 10^3/uL (0.0-0.1) 03/03/23 09:48 Nucleated RBC % (auto) 0 % 03/03/23 09:48 Nucleated RBCs # 0.0 /100WBC 03/03/23 09:48 PT 12.70 SECONDS (12.1-14.9) 03/03/23 09:48 INR 0.93 (0.8-1.2) 03/03/23 09:48 APTT 27.3 SECONDS (23.9-36.7) 03/03/23 09:48 Sodium 136 mmol/L (136-145) 03/03/23 09:48 Potassium 4.5 mmol/L (3.5-5.1) 03/03/23 09:48 Chloride 103 mmol/L (98-107) 03/03/23 09:48 Carbon Dioxide 23 mmol/L (22-29) 03/03/23 09:48 Anion Gap 14.5 (5-19) 03/03/23 09:48 BUN 20 mg/dL (6-20) 03/03/23 09:48 Creatinine 0.8 mg/dL (0.5-0.9) 03/03/23 09:48 GFR Calculation 73.9 mL/min (90-130) L 03/03/23 09:48 Glucose 101 mg/dL (65-115) 03/03/23 09:48 Calculated Osmolality 285 mOsm/kg (285-295) 03/03/23 09:48 Calcium 9.5 mg/dL (8.5-10.5) 03/03/23 09:48 Total Bilirubin 0.2 mg/dL (0.15-1.2) 03/03/23 09:48 AST 14 U/L (0-32) 03/03/23 09:48 ALT 13 U/L (0-33) 03/03/23 09:48 Alkaline Phosphatase 133 U/L (35-105) H 03/03/23 09:48 Total Protein 7.3 g/dL (6.6-8.7) 03/03/23 09:48 Albumin 4.6 g/dL (3.5-5.2) 03/03/23 09:48 Globulin 2.7 g/dL (1.3-4.6) 03/03/23 09:48 Urine Color Colorless (Yellow) 03/03/23 09:50 Urine Appearance Clear (CLEAR) 03/03/23 09:50 Urine pH 5 (5-7) 03/03/23 09:50 Ur Specific [place] 1.005 (1.005-1.030) 03/03/23 09:50 Urine Protein Neg (Negative) 03/03/23 09:50 Urine Glucose (UA) Norm (Normal) 03/03/23 09:50 Urine Ketones Negative (Negative) 03/03/23 09:50 Urine Blood 2+ (Negative) H 03/03/23 09:50 Urine Nitrate Negative (Negative) 03/03/23 09:50 Urine Bilirubin Neg (Negative) 03/03/23 09:50 Urine Urobilinogen Norm mg/dL (Negative) 03/03/23 09:50 Ur Leukocyte Esterase Negative (Negative) 03/03/23 09:50 Urine RBC Rare /hpf (0-2) 03/03/23 09:50 Urine WBC None /hpf (0-5) 03/03/23 09:50 Ur Squamous Epith Cells None /hpf (0-5) 03/03/23 09:50 Amorphous Sediment Not Reportable 03/03/23 09:50 Urine Bacteria Trace /hpf (NONE) 03/03/23 09:50 Discharge Plan Discharge Patient Disposition: Home Clinical Impression: Abdominal pain, Abnormal feces Condition: Stable Prescriptions: No Action trazodone 50 mg tablet 50 mg PO BEDTIME lisinopril 20 mg tablet 20 mg PO DAILY Hold Instructions: Resume on 07/04/21. amlodipine 5 mg tablet 5 mg PO DAILY Qty: 30 0RF Hold Instructions: Resume on 07/04/21. clopidogrel 75 mg tablet 75 mg PO DAILY diclofenac sodium 75 mg tablet,delayed release (DR/EC) 75 mg PO BID PRN (Reason: Pain) duloxetine 60 mg capsule,delayed release(DR/EC) 60 mg PO DAILY tizanidine 4 mg Capsule 4 mg PO Q8H PRN (Reason: Muscle Spasm) ferrous gluconate 324 mg (38 mg iron) tablet 324 mg PO EVERY OTHER DAY Discharge Orders: Discharge ED (Routine); Ordered 03/03/23 Ordered By: Benigno Zheng Referrals: Patrick Guevara MD [Primary Care Provider] - Discharge Diet: Usual diet Discharge Activity: Increase activity as tolerated Patient Instructions: Abdominal Pain (ED), Opioid Safety, Pain Management Activity Restrictions/Additional Instructions: If you have any further abnormal stools or symptoms follow-up with your primary care doctor Coding Level of Care Code ED Lead Caregiver for Bobbi Nuñez
[2023-03-03 10:17] LABS: Alanine Aminotransferase 13 U/L (0-33); Albumin Level 4.6 g/dL (3.5-5.2); Alkaline Phosphatase 133 U/L (35-105); Anion Gap 14.5 (5-19); Aspartate Amino Transferase 14 U/L (0-32); Blood Urea Nitrogen 20 mg/dL (6-20); Calcium 9.5 mg/dL (8.5-10.5); Carbon Dioxide 23 mmol/L (22-29); Chloride 103 mmol/L (98-107); Globulin 2.7 g/dL (1.3-4.6); Glomerular Filtration Rate 73.9 mL/min (90-130); Glucose 101 mg/dL (65-115); Osmolality Calculated 285 mOsm/kg (285-295); Potassium 4.5 mmol/L (3.5-5.1); Sodium 136 mmol/L (136-145); Total Bilirubin 0.2 mg/dL (0.15-1.2); Total Protein 7.3 g/dL (6.6-8.7)
[2023-03-03 10:18] LABS: INR 0.93 (0.8-1.2)
[2023-03-03 10:19] LABS: Partial Thromboplastin Time 27.3 SECONDS (23.9-36.7)
[2023-03-03 10:26] LABS: Add Urine Culture? No; Add Urine Microscopic? YES; Bacteria Urine TRACE /hpf; Bilirubin Urine Neg (Negative); Blood Urine 2+ (Negative); Glucose Urine UA Norm (Normal); Ketones Urine Negative (Negative); Leukocyte Esterase Urine Negative (Negative); Nitrate Urine Negative (Negative); Protein Urine Neg (Negative); RBC Urine RARE /hpf (0-2); Specific Gravity, Urine 1.005 (1.005-1.030); Urine Appearance Clear (CLEAR); Urine Color Colorless (Yellow); Urobilinogen Urine Norm (Negative); pH Urine 5 (5-7)
== END 2023-03-03 11:17 | disposition home or self-care (01) ==
PROVIDERS: Emergency Provider Family Medicine; PCP Family Medicine
DX: R10.30 Lower abdominal pain, unspecified (principal); R19.5 Other fecal abnormalities; Z79.02 Long term (current) use of antithrombotics/antiplatelets; I10 Essential (primary) hypertension; F17.210 Nicotine dependence, cigarettes, uncomplicated
CPT/HCPCS: 74177; 80053; 81001; 85025; 85610; 85730; 93005; 99285; Q9967

== ENCOUNTER 2024-04-24 09:45 | Emergency (ER) | payer OTHER, SELFPAY ==
[2024-04-24 09:52] VITALS: BP 109/82; PULSE 85; RESP 16; TEMP 36.9; O2SAT 100; BMI 20.9
--- NOTE | 2024-04-24 09:55 | CT_ITS ---
WS: [id number] CT HEAD TECHNIQUE: Noncontrast CT of the head obtained from the skullbase to the vertex. CLINICAL INFORMATION: L side numbness COMPARISON: 2021 DLP: [address] scans at [facility] use at least one of these dose optimization techniques: automated e xposure control; mA and/or kV adjustment per patient size (includes targeted exams where dose is matc hed to clinical indication); or iterative reconstruction. FINDINGS: No evidence of intracranial hemorrhage or mass effect. Ventricular system and basal cisterns are hurley nt. No extra-axial fluid collections. No evidence of mass or mass effect. Normal chavez-white different iation. Retention cyst LEFT sphenoid sinus. CT/CT head thrombolytic [id number] IMPRESSION: 1. No evidence of intracranial hemorrhage or mass effect. 2. No acute intracranial findings. Notified Benigno Zheng DO at 04/24/2024 10:16 AM.
[2024-04-24 10:10] LABS: Glucose Point of Care 165 mg/dL (70-110)
--- NOTE | 2024-04-24 10:11 | ECG_ITS ---
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 Measurements Intervals [place] Rate: 70 P: 75 WA: 128 QRS: 51 QRSD: 81 T: 81 QT: 374 QTc: 405 Interpretive Statements SINUS RHYTHM Compared to ECG 03/03/2023 09:36:29 No significant changes Electronically Signed On 04-24-2024 22:57:52 CDT by Lorenzo Pinto M.D. [email or web address]
[2024-04-24 10:19] LABS: Basophils % 0.4 %; Eosinophils % 0.4 %; Lymphocytes # 2.8 10^3/uL (0.8-4.8); Lymphocytes % 27.8 %; Mean Corpuscular HGB Conc 32.5 g/dL (30-55); Mean Corpuscular Volume 92.4 fl (85-98); Mean Platelet Volume 9.2 fL (7.4-10.4); Monocytes # 0.5 10^3/uL (0.2-0.9); Monocytes % 4.6 %; Neutrophils # 6.74 10^3/uL (1.8-7.7); Neutrophils % 66.5 %; Nucleated Red Blood Cells % 0 %; Platelet Count 348 10^3/cmm (157-399); Red Blood Count 4.33 10^6/uL (3.85-5.65); Red Cell Distribution Width 14.1 % (12.1-15.1); White Blood Count 10.14 10^3/uL (3.29-11.43)
[2024-04-24 10:35] LABS: INR 0.96 (0.8-1.2)
[2024-04-24 10:36] LABS: Partial Thromboplastin Time 27.3 SECONDS (23.9-36.7)
--- NOTE | 2024-04-24 10:37 | W.ED.NEUROSD ---
HPI - Neuro Symptoms/Deficit General: Chief Complaint: Headache Stated Complaint: left side numbness Time Seen by Provider: 04/24/24 09:50 History of Present Illness: 58-year-old female presents emergency room, left sided facial numbness mostly in lower face. She has a history of previous stroke. States she was normal when she went to bed last night woke up with the symptoms are limited only to the face she is also noticed a lot of twitching of the left side of her eye. There is a little bit of eye droop but no actual facial droop. She has no other functional deficits. She has no difficulty speech swallowing or hearing no difficulty with taste. No abnormal sensation in her tongue she not had any tearing of the eye. She has not noticed any weakness or difficulty with coordination or ambulation. Associated symptoms: Deny chest pain Related Data Home Medications Medication Instructions Recorded Confirmed lisinopril 20 mg tablet 20 mg PO QPM 01/06/20 04/24/24 trazodone 50 mg tablet 50 mg PO BEDTIME 01/06/20 04/24/24 clopidogrel 75 mg tablet 75 mg PO QAM 03/03/23 04/24/24 duloxetine 60 mg capsule,delayed 60 mg PO QAM 03/03/23 04/24/24 release amlodipine 5 mg tablet 5 mg PO QAM 04/24/24 04/24/24 Previous Rx's Medication Instructions Recorded prednisone 20 mg tablet 20 mg PO TID 7 days #21 tabs 04/24/24 valacyclovir 1 gram tablet 1,000 mg PO TID 7 days #21 tabs 04/24/24 Allergies Allergy/AdvReac Type Severity Reaction Status Date / Time codeine Allergy Unknown Verified 03/03/23 10:17 Review of Systems Const: Denies: fever(s) or chills Card: Denies: chest pain Resp: Denies: dyspnea GI: Denies: abdominal pain : Denies: dysuria, urinary frequency or urinary urgency Musc: Denies: neck pain or back pain Skin/Breast: Denies: rash PFSH ED PFSH: Medical History Migraines Hypertension Surgical History History of oophorectomy H/O: hysterectomy Family History Mother Liver failure Father CAD (coronary artery disease) Social History Smoking and tobacco/nicotine status: current every day tobacco/nicotine user Alcohol intake: never Substance/Drug Use: never NIH stroke score NIHSS: Level Of Consciousness - 1a: 0 Level Of Consciousness Questions - 1b: Both Correct Level Of Consciousness Commands - 1c: Both Correct Best Gaze - 2: Normal Visual Arce - 3: No Visual Loss Facial Palsy - 4: Normal Motor Arm Right - 5: No Drift Motor Arm Left - 5: No Drift Motor Leg Right - 6: No Drift Motor Leg Left - 6: No Drift Limb Ataxia - 7: Absent Sensory - 8: Mild To Moderate Loss (Left lower face) Best Language - 9: No Aphasia Dysarthia - 10: Normal Extinction And Inattention - 11: 0 Score: Total Score: 1 Physical Exam Const: COMMON NORMALS: no acute distress GENERAL APPEARANCE: cooperative and comfortable ORIENTATION/CONSCIOUSNESS: Yes awake, Yes oriented to person, Yes oriented to place and Yes oriented to time HENMT: COMMON NORMALS: normocephalic, atraumatic and hearing grossly normal bilaterally HEAD & SCALP: normocephalic and atraumatic Resp: COMMON NORMALS: normal respiratory effort, No retractions, No use of accessory muscles and clear to auscultation bilaterally AUSCULTATION: clear to auscultation bilaterally Cardio: COMMON NORMALS: regular rate, regular rhythm and No murmurs present (Cardio) RATE: regular rate RHYTHM: regular rhythm GI: COMMON NORMALS: Soft to palpation and No hepatosplenomegaly present AUSCULTATION: Yes normoactive bowel sounds PALPATION: Yes Soft to palpation, No Tenderness to palpation present (GI), No Guarding due to palpation present (GI) and Yes No hepatosplenomegaly present Extremity: COMMON NORMALS: normal to inspection, capillary refill normal, no clubbing, cyanosis or edema, no calf tenderness and no pedal edema Neuro: SENSORIUM/ORIENTATION: Yes oriented to person, Yes oriented to place and Yes oriented to time Skin: COMMON NORMALS: no rashes or lesions noted GENERAL SKIN EXAM: no rashes or lesions noted Course Vital Signs: Vital signs: Vital Signs Temperature 98.5 F 04/24/24 09:52 Pulse Rate 81 04/24/24 11:27 Respiratory Rate 16 04/24/24 09:52 Blood Pressure 143/89 04/24/24 11:27 Pulse Oximetry 99 04/24/24 11:27 Oxygen Delivery Me thod Room Air 04/24/24 09:52 MDM - Neuro Symptoms/Deficit Medical Decision Making Suspect patient may have a early Pressley's palsy. She does have some blepharospasm. Stroke alert was initially called CT of the head was normal. Reviewed the case with Dr. Allison. At Dr. Allison's request with the patient's permission we did a brief video of her face had her perform some functional tasks and forwarded to Dr. Allison who reviewed it she agrees with the conclusion that this is likely a facial nerve issue possibly Pressley's palsy recommended prednisone as well as valacyclovir. Will discharge the patient home. At the time of discharge she had no further neurologic deficits. We discharged her home on prednisone and valacyclovir. And will have her follow-up with neurology. Will also have her get an MRI as an outpatient per neurology's recommendation. Medical Records I reviewed the patient's medical records. Lab Data I reviewed the patient's lab results. 04/24/24 10:12 04/24/24 10:[address] 04/24/24 09:55 IMPRESSION: 1. No evidence of intracranial hemorrhage or mass effect. 2. No acute intracranial findings. Notified Benigno Zheng DO at 04/24/2024 10:16 AM. Laboratory Results WBC 10.14 10^3/uL (3.29-11.43) 04/24/24 10:12 RBC 4.33 10^6/uL (3.85-5.65) 04/24/24 10:12 Hgb 13.00 g/dL (11.27-16.99) 04/24/24 10:12 Hct 40.0 % (36-47) 04/24/24 10:12 MCV 92.4 fl (85-98) 04/24/24 10:12 MCH 30.0 pg (27-33) 04/24/24 10:12 MCHC 32.5 g/dL (30-55) 04/24/24 10:12 RDW 14.1 % (12.1-15.1) 04/24/24 10:12 Plt Count 348 10^3/cmm (157-399) 04/24/24 10:12 MPV 9.2 fL (7.4-10.4) 04/24/24 10:12 Neut % (Auto) 66.5 % 04/24/24 10:12 Lymph % (Auto) 27.8 % 04/24/24 10:12 [place] % (Auto) 4.6 % 04/24/24 10:12 Eos % (Auto) 0.4 % 04/24/24 10:12 Baso % (Auto) 0.4 % 04/24/24 10:12 Neut # (Auto) 6.74 10^3/uL (1.8-7.7) 04/24/24 10:12 Lymph # (Auto) 2.8 10^3/uL (0.8-4.8) 04/24/24 10:12 [place] # (Auto) 0.5 10^3/uL (0.2-0.9) 04/24/24 10:12 Eos # (Auto) 0.0 10^3/uL (0.0-0.8) 04/24/24 10:12 Baso # (Auto) 0.0 10^3/uL (0.0-0.1) 04/24/24 10:12 Nucleated RBC % (auto) 0 % 04/24/24 10:12 Nucleated RBCs # 0.0 /100WBC 04/24/24 10:12 PT 13.10 SECONDS (12.1-14.9) 04/24/24 10:12 INR 0.96 (0.8-1.2) 04/24/24 10:12 APTT 27.3 SECONDS (23.9-36.7) 04/24/24 10:12 Sodium 138 mmol/L (136-145) 04/24/24 10:12 Potassium 3.8 mmol/L (3.5-5.1) 04/24/24 10:12 Chloride 103 mmol/L (98-107) 04/24/24 10:12 Carbon Dioxide 26 mmol/L (22-29) 04/24/24 10:12 Anion Gap 12.8 (5-19) 04/24/24 10:12 BUN 19 mg/dL (6-20) 04/24/24 10:12 Creatinine 0.8 mg/dL (0.5-0.9) 04/24/24 10:12 GFR Calculation 73.7 mL/min (90-130) L 04/24/24 10:12 Glucose 120 mg/dL (65-115) H 04/24/24 10:12 POC Glucose 165 mg/dL (70-110) H 04/24/24 10:06 Calculated Osmolality 289 mOsm/kg (285-295) 04/24/24 10:12 Calcium 9.2 mg/dL (8.5-10.5) 04/24/24 10:12 Total Bilirubin 0.4 mg/dL (0.15-1.2) 04/24/24 10:12 AST 13 U/L (0-32) 04/24/24 10:12 ALT 16 U/L (0-33) 04/24/24 10:12 Alkaline Phosphatase 79 U/L (35-105) 04/24/24 10:12 Total Protein 7.1 g/dL (6.6-8.7) 04/24/24 10:12 Albumin 4.5 g/dL (3.5-5.2) 04/24/24 10:12 Globulin 2.6 g/dL (1.3-4.6) 04/24/24 10:12 Urine Color Yellow (Yellow) 04/24/24 10: Urine Appearance Clear (CLEAR) 04/24/24 10:33 Urine pH 5.5 (5-7) 04/24/24 10: Ur Specific [place] 1.020 (1.005-1.030) 04/24/24 10:33 Urine Protein Negative (Negative) 04/24/24 10:33 Urine Glucose (UA) Negative (Normal) 04/24/24 10:33 Urine Ketones Negative (Negative) 04/24/24 10: Urine Blood 2+ (Negative) A 04/24/24 10: Urine Nitrate Negative (Negative) 04/24/24 10:33 Urine Bilirubin Negative (Negative) 04/24/24 10: Urine Urobilinogen 1.0 mg/dL (Negative) 04/24/24 10:33 Ur Leukocyte Esterase Negative (Negative) 04/24/24 10: Urine RBC 6-10 /hpf (0-2) 04/24/24 10:33 Urine WBC 0-5 /hpf (0-5) 04/24/24 10:33 Ur Squamous Epith Cells 0-5 /hpf (0-5) 04/24/24 10:33 Amorphous Sediment Not Reportable 04/24/24 10:33 Urine Bacteria None seen /hpf (NONE) 04/24/24 10:33 Hyaline Casts 4.52 /lpf 04/24/24 10:33 Urine Opiates Screen Negative ng/mL (Negative) 04/24/24 10:33 Ur Barbiturates Screen Negative ng/mL (Negative) 04/24/24 10:33 Ur Phencyclidine Scrn Negative ng/mL (Negative) 04/24/24 10:33 Ur Amphetamines Screen Negative ng/mL (Negative) 04/24/24 10:33 U Benzodiazepines Scrn Negative ng/mL (Negative) 04/24/24 10:33 Urine Cocaine Screen Negative ng/mL (Negative) 04/24/24 10:33 U Marijuana (THC) Screen Positive ng/mL (Negative) H 04/24/24 10:33 All radiology interpretation(s) finalized by discharge Discharge Plan Discharge Patient Disposition: Home Clinical Impression: Blepharospasm of left eye, Acute facial pain Condition: Stable Prescriptions: New prednisone 20 mg tablet 20 mg PO TID 7 Days Qty: 21 0RF valacyclovir 1 gram tablet 1,000 mg PO TID 7 Days Qty: 21 0RF No Action trazodone 50 mg tablet 50 mg PO BEDTIME lisinopril 20 mg tablet 20 mg PO QPM Hold Instructions: Resume on 07/04/21. clopidogrel 75 mg tablet 75 mg PO QAM duloxetine 60 mg capsule,delayed release(DR/EC) 60 mg PO QAM amlodipine 5 mg tablet 5 mg PO QAM Discharge Orders: Discharge ED (Routine); Ordered 04/24/24 Ordered By: Benigno Zheng Referrals: Patrick Guevara MD [Primary Care Provider] - Discharge Diet: Usual diet Discharge Activity: Resume usual activity Patient Instructions: Opioid Safety, Pain Management Activity Restrictions/Additional Instructions: Thank you for choosing [facility] for your healthcare needs today. It is very important that you follow up as instructed or that you return to the Emergency Department should you have concerns or if your condition changes or worsens in any way. You are seen in the emergency room for left-sided facial symptoms. CT of your head was negative.. You may be having facial nerve irritation may be an early Pressley's palsy. After discussion with the neurologist and reviewing your case we recommend prednisone 20 mg 3 times a day for 7 days valacyclovir 1000 mg 3 times a day for 7 days. Will set you up for an outpatient MRI of the head and follow-up with neurology Coding Level of Care Code ED Tool Setter for Bobbi Nuñez
[2024-04-24 10:45] LABS: Alanine Aminotransferase 16 U/L (0-33); Albumin Level 4.5 g/dL (3.5-5.2); Alkaline Phosphatase 79 U/L (35-105); Anion Gap 12.8 (5-19); Aspartate Amino Transferase 13 U/L (0-32); Blood Urea Nitrogen 19 mg/dL (6-20); Calcium 9.2 mg/dL (8.5-10.5); Carbon Dioxide 26 mmol/L (22-29); Chloride 103 mmol/L (98-107); Creatinine Clr Calc Pharmacy 66.4996; Globulin 2.6 g/dL (1.3-4.6); Glomerular Filtration Rate 73.7 mL/min (90-130); Glucose 120 mg/dL (65-115); Osmolality Calculated 289 mOsm/kg (285-295); Potassium 3.8 mmol/L (3.5-5.1); Sodium 138 mmol/L (136-145); Total Bilirubin 0.4 mg/dL (0.15-1.2); Total Protein 7.1 g/dL (6.6-8.7)
[2024-04-24 10:47] LABS: Bilirubin Urine Negative (Negative); Blood Urine 2+ (Negative); Glucose Urine UA Negative (Normal); Ketones Urine Negative (Negative); Leukocyte Esterase Urine Negative (Negative); Nitrate Urine Negative (Negative); Protein Urine Negative (Negative); Urine Appearance Clear (CLEAR); Urine Color Yellow (Yellow); pH Urine 5.5 (5-7)
[2024-04-24 10:52] LABS: Add Urine Microscopic? YES; Bacteria Urine None Seen /hpf; Hyaline Casts Urine 4.52 /lpf; Squamous Epithelial Cell Urine 0-5 /hpf (0-5); WBC Urine 0-5 /hpf (0-5)
[2024-04-24 10:54] LABS: Amphetamines Screen Urine Negative (Negative); Barbiturates Screen Urine Negative (Negative); Benzodiazepines Screen Urine Negative (Negative); Cocaine Screen Urine Negative (Negative); Opiate Screen Urine Negative (Negative); PCP Screen Urine Negative (Negative); THC Screen Urine Positive (Negative)
[2024-04-24] MEDS: diphenhydrAMINE 50 mg/mL SDV 1mL IVP (11:21)
[2024-04-24] MEDS: ketorolac 30 mg/mL INJ IVP (11:21)
[2024-04-24 11:27] VITALS: BP 143/89; PULSE 81; O2SAT 99
== END 2024-04-24 11:28 | disposition home or self-care (01) ==
PROVIDERS: Emergency Provider Family Medicine; PCP Family Medicine
DX: G24.5 Blepharospasm (principal); R51.9 Headache, unspecified; Z86.73 Personal history of transient ischemic attack (TIA), and cerebral infarction without residual deficits
CPT/HCPCS: 36416; 70450; 80053; 80306; 81001; 82962; 85025; 85610; 85730; 93005; 96374; 96375; 99285; J1200; J1885

== ENCOUNTER 2024-11-14 09:42 | Outpatient (CLI) | payer OTHER, SELFPAY ==
--- NOTE | 2024-11-14 09:53 | MM_ITS ---
WS: [id number] BILATERAL SCREENING DIGITAL TOMOSYNTHESIS MAMMOGRAM WITH CAD HISTORY: SCREEN COMPARISON: 12/21/2022, 01/16/2017 Bilateral CC and MLO views with tomosynthesis and synthetic mammography submitted. Computer aided detection analyzed. Breast composition: There are scattered areas of fibroglandular density. No suspicious masses, microcalcifications or architectural distortion. Benign coarse calcification central LEFT breast. MM/MM scr BI tomosynthesis [id number] IMPRESSION: BI-RADS: 2 - Benign. FOLLOW UP: 1 Year Follow-up
--- NOTE | 2024-11-14 09:54 | CT_ITS ---
WS: [id number] LDCT LUNG CANCER SCREENING HISTORY: NICOTINE DEPENDENCE,CIGARETTES TECHNIQUE: Axial imaging performed from the apices to 1 cm below the costophrenic angles. Coronal and sagittal reformats are submitted with axial MIP series. All CT scans at [facility] use at least one of these dose optimization techniques: automated exposure control; mA and/or kV adjustment per patient size (includes targeted exams where dose is matched to clinical indication); or iterative reconstruction. DLP: 48.70 mGy.cm DIvol: Mean CTDIvol: 0.80 (mGy) COMPARISON: 12/21/2022 Diagnostic quality: Satisfactory Lungs: Marked pulmonary hyper expansion. Changes of centrilobular emphysema. No pulmonary mass or nodule. No endobronchial lesions. Heart: Normal size heart with no pericardial effusion.. Other findings: Mild atherosclerosis aorta. Normal size pulmonary artery. Small hiatal hernia. Low-attenuation 12 mm mass superior pole LEFT kidney noted to be a cyst on a prior CT. Increase in thoracic kyphosis. CT/CT lung screening [id number] IMPRESSION: LUNG-RADS: 1-Negative FOLLOW UP: 12 Month: Continue annual screening with LDCT OTHER FINDINGS (S MODIFIER): None.
== END 2024-11-14 09:43 | disposition home or self-care (01) ==
PROVIDERS: PCP Family Medicine; Visit Provider Family Medicine
DX: Z12.31 Encounter for screening mammogram for malignant neoplasm of breast (principal); Z12.2 Encounter for screening for malignant neoplasm of respiratory organs; F17.210 Nicotine dependence, cigarettes, uncomplicated; R92.323 Mammographic fibroglandular density, bilateral breasts; R92.1 Mammographic calcification found on diagnostic imaging of breast; R91.8 Other nonspecific abnormal finding of lung field; J43.2 Centrilobular emphysema; I70.0 Atherosclerosis of aorta; K44.9 Diaphragmatic hernia without obstruction or gangrene; N28.89 Other specified disorders of kidney and ureter; M40.294 Other kyphosis, thoracic region
CPT/HCPCS: 71271; 77063; 77067

== ENCOUNTER 2025-01-22 12:54 | Emergency (ER) | payer OTHER, SELFPAY ==
[2025-01-22] VITALS (7 sets, daily range): BP systolic 116–148; BP diastolic 64–80; PULSE 52–63; RESP 16–24; TEMP 36.7; O2SAT 96–100; BMI 20.9
--- OUTSIDE RECORDS SUMMARY | 2025-01-22 12:58 | XMS_ITS | Clinical Summary ---
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 Active amlodipine besylate/benazep ril (AMLODIPINE-BARBARA ZEPRIL ORAL) Take 5 mg by mouth. Active clopidogreL (PLAVIX) 75 mg Tablet Take 75 mg by mouth. Active traZODone (DESYREL) 50 mg tablet Take 50 mg by mouth daily at bedtime. Active lisinopriL (PRINIVIL) 20 mg tablet Take 20 mg by mouth daily. Active atorvastatin (LIPITOR) 40 mg tablet Take 40 mg by mouth daily. Active Active Problems No known active problems Social History Tobacco Use Types Packs/Day Years Used Date Smoking Tobacco: Former Cigarettes Q uit: 07/02/2021 Smokeless Tobacco: Never Alcohol Use Standard Drinks/Week Comments Not Currently 0 (1 standard drink = 0.6 oz pur e alcohol) Comments No Sex and Gender Information Value Date Recorded Sex Assigned at Not on file Legal Sex Female 12:31 PM [employer] Gender Identity Not on file Sexual Orientation Not on file Last Filed Vital Signs Vital Sign Reading Time Taken Comments Blood Pressure 110/70 09/29/2021 11:15 AM CDT Pulse 73 09/29/2021 11:15 AM CDT Temperature 35.9 C (96.6 F) 09/29/2021 11:15 AM CDT Respiratory Rate 16 09/29/2021 11:15 AM CDT Oxygen Saturation 99% 09/29/2021 11:15 AM CDT Inhaled Oxygen Concentration - - Weight 56.2 kg (124 lb) 09/29/2021 7:41 AM CDT Height 162.6 cm (5' 4 ) 09/29/2021 7:41 AM CDT Body Mass Index 21.28 09/29/2021 7:41 AM CDT Plan of Treatment Health Maintenance Due Date Last Done Comments DTAP/TDAP/TD VACCINES (1 - Tdap) 1984 HEPATITIS B VACCINES (1 of 3 - 19+ 3-dose series) 12/1984 HPV/Cotest (21-29) 1986 CERVICAL CANCER SCREENING 11/06/1995 HPV/Cotest (30-65) 11/06/1995 PAP SMEAR 11/06/1995 BREAST CANCER SCREENING 2005 COLORECTAL SCREENING 2010 Colorectal Cancer Screening 2010 FIT-DNA Q 3 years 2010 FIT/FOBT Q 1 year 2010 Flex Sig/CT Colonography Q 5 years 2010 ZOSTER VACCINE (1 of 2) 11/06/2015 INFLUENZA VACCINE (#1) 2025 Medical Devices Implanted Type Area Home Administrator Device Identifier Shelf Expiration Date Model / Serial / Lot 5fr [employer] Vascular Closure Device-09/30/19 22 Implanted:Qty: 1 on 09/29/2021 by Apollo Coats MD Closure Device Right: Groin [id number] 06/15/2023 [id number] / / [id number] Insurance [employer]
--- OUTSIDE RECORDS SUMMARY | 2025-01-22 12:58 | XMS_ITS | Data Portability ---
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 Name Role Phone FLORECITA GUEVARA Primary Care Provider Assessment Encounter Date Assessment Date Assessment LastModified by Organization Details LastModified Time 12/29/2024 12/29/2024 ct chest report reviewed [email or web address] Not available 12/29/2024 13:34:49 01/08/2025 01/08/2025 chest pain is well controleld with toprol [email or web address] Not available 01/08/2025 10:50:13 Plan of Treatment Reminders Order Date Submit Date Provider Last Modified By Organization Details Last Modified Time Details Appointments PROCEDURE 2024 07:00A Selena Ledesma MD Not available Not available Not available Lab D-dimer, quant, plasma 2024 025 [employer] [facility], [address] [place] [address] [address], [address] [place], [address], 12/30/2024 16:27:41 troponin I, serum or plasma 2024 025 [employer] [facility], [address] [place] [address] 248, [address] [place], [address], 12/30/2024 16:27:42 CBC 2024 025 RUSSEL Martinton [facility], [address], [address], [place], [address], 12/29/2024 14:27:02 CMP, serum or plasma 2024 [facility]US[facility], [address] [place] [address], [facility] 1, [place], [address], 12/29/2024 15:15:[address] referral 2024 [email or web address] Panchito Prakash MD, [address] , [place], [address], 01/20/2025 16:49:16 Procedures colonosco py procedure (PROC) 2024 025 [id number] [facility], [address] , [place], [address], 12/08/2024 16:36:15 colonosco py, with removal of tumor, polyp or lesion (PROC) 2024 025 [facility], [address] , [place], [address], 12/08/2024 11:20:19 Surgeries None recorded. Imaging XR, chest, 2 view 2024 [facility] ([facility]), [address] [place] [address], [address], 12/30/2024 10:40:27 electroca rdiogram 2024 025 [facility] ([facility]), [address] [place] [address], [address], 12/30/2024 10:40:26 pharmacol ogic nuclear stress test - Lexiscan injected stress test she is not capable of a treadmill test Jennifer REDMOND - Not Required: Call Reference #: [id number] AM [address] [facility] ([facility]), [address] [place] [address] [place], [address], 01/20/2025 11:18:03 Medication Orders fluticaso ne propionat e 50 mcg/actua tion nasal spray,bk pension 2024 025 [id number], [address], [address], [place], [address], 01/05/2025 13:42:15 metoprolo l tartrate 25 mg tablet 2024 025 [id number], [address], [address], [place], [address], 12/29/2024 13:54:07 pantopraz ole 40 mg tablet,de layed release 2024 025 [id number], [address], [address], [place], [address], 12/29/2024 13:54:06 albuterol 90 mcg-budes onide 80 mcg/actua tion HFA aerosol inhaler 2024 025 [id number], [address], [address], [place], [address], 11/21/2024 10:46:19 Trelegy Ellipta 100 mcg-62.5 mcg-25 mcg powder for inhalatio n 2024 025 [id number], [address], [address], [place], [address], 11/21/2024 10:46:20 Patient TargetsNo targets recorded. 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 Referral for Hea ring loss of left ear Referring Physician: Jaye Palafox, Family Medicine, Encounter Date: 01/05/2025 Results Created Date Observation Date Name Description Value Unit Range Abnormal Flag Note LastModifiedBy Organization Detail LastModifiedTime 12/30/19 25 12/29/2024 CBC WBC 8.6 x10 4.0-10 .5 Not Available [facility] [address] [facility] [address], [place], [address], 12/29/2024 14:27:02 12/30/19 25 12/29/2024 CBC RBC 4.52 x10 3.50-5 .50 Not Available [facility] [address] [facility] [address], [place], [address], 12/29/2024 14:27:02 12/30/19 25 12/29/2024 CBC HGB 13.4 g/dL 12.0-1 6.0 Not Available [facility] [address] [facility] [address], [place], [address], 12/29/2024 14:27:02 12/30/19 25 12/29/2024 CBC HCT 41.8 % 37.0-4 7.0 Not Available [facility] [address] [facility] [address], [place], [address], 12/29/2024 14:27:02 12/30/19 25 12/29/2024 CBC MCV 92.4 fL 80.0-9 9.9 Not Available [facility] [address] [facility] [address], [place], [address], 12/29/2024 14:27:02 12/30/19 25 12/29/2024 CBC MCH 29.7 pg 27.0-3 2.0 Not Available [facility] [address] [facility] 1, [place], [address], 12/29/2024 14:27:02 12/30/1912/29/2024 CBC MCHC 32.1 g/dL 32.0-3 6.0 Not Available [facility] [address] [facility] [address], [place], [address], 12/29/2024 14:27:02 12/30/19 25 12/29/2024 CBC RDW 14.3 % 11.5-1 4.5 Not Available [facility] [address] [facility], [place], [address], 12/29/2024 14:27:02 12/30/19 25 12/29/2024 CBC plt 320.0 x10 140.0- 451.0 Not Available [facility] [address] [facility] [address], [place], [address], 12/29/2024 14:27:02 12/30/19 25 12/29/2024 CBC lymphocytes % 35.4 % 20.0-5 0.0 Not Available [facility] [address] [facility], [place], [address], 12/29/2024 14:27:02 12/30/19 25 12/29/2024 CBC granulcytes % 59.6 % 30.0-7 0.0 Not Available [facility] [address] [facility] [address], [place], [address], 12/29/2024 14:27:02 12/30/19 25 12/29/2024 CBC monocytes % 4.2 % 2.0-16 .0 Not Available [facility] [address] [facility] [address], [place], [address], 12/29/2024 14:27:02 12/30/19 25 12/29/2024 CBC granulcytes# 5.1 x10 Not Tanvi ilable [facility] [address] [address], [place], [address], 12/29/2024 14:27:02 12/30/19 25 12/29/2024 CBC lymphocytes # 3.0 x10 Not Available [facility] [address] [address], [place], [address], 12/29/2024 14:27:02 12/30/19 25 12/29/2024 CBC monocytes # 0.4 x10 Not Avai lable [facility] [address] [address], [place], [address], 12/29/2024 14:27:02 12/30/19 25 12/29/2024 CMP (FEMA LE) glucose 100.0 mg/dL 60.0-9 9.0 high Not Available [facility] [address] [address], [place], [address], 12/29/2024 15:15:34 12/30/19 25 12/29/2024 CMP (FEMA LE) BUN (blood urea nitrogen) 12.0 mg/dL 10.0-2 6.0 Not Available [facility] [address] [address], [place], [address], 12/29/2024 15:15:34 12/30/19 25 12/29/2024 CMP (FEMA LE) creatinine (serum) 0.6 mg/dL 0.4-1. 5 Not Available [facility] [address] [address], [place], [address], 12/29/2024 15:15:34 12/30/19 25 12/29/2024 CMP (FEMA LE) BUN/creatini ne ratio 20.00 ratio Not Available [facility] [address] [address], [place], [address], 12/29/2024 15:15:34 12/30/19 25 12/29/2024 CMP (FEMA LE) eGFR calculated 108.8 Not Available [facility] [address] [facility], [place], [address], 12/29/2024 15:15:34 12/30/19 25 12/29/2024 CMP (FEMA LE) total protein 7.8 g/dL 6.0-8. 5 Not Available [facility] [address] [facility] 1, [place], [address], 12/29/2024 15:15:34 12/30/19 25 12/29/2024 CMP (FEMA LE) total bilirubin 0.5 mg/dL 0.2-1. 3 Not Available [facility] [address] [facility] 1, [place], [address], 12/29/2024 15:15:34 12/30/19 25 12/29/2024 CMP (FEMA LE) albumin 4.7 g/dL 3.5-5. 5 Not Available [facility] [address] [facility] 1, [place], [address], 12/29/2024 15:15:34 12/30/19 25 12/29/2024 CMP (FEMA LE) globulin 3.1 calc Not Available [facility] [address] [facility] 1, [place], [address], 12/29/2024 15:15:34 12/30/19 25 12/29/2024 CMP (FEMA LE) AST (SGOT) 27.0 U/L 0.0-46 .0 Not Available [facility] [address] [facility] 1, [place], [address], 12/29/2024 15:15:34 12/30/19 25 12/29/2024 CMP (FEMA LE) altv (SGPT) 19.0 U/L 13.0-6 9.0 normal Not Available [facility] [address] [facility] [address], [place], [address], 12/29/2024 15:15:34 12/30/19 25 12/29/2024 CMP (FEMA LE) A/G ratio 1.5 ratio Not Available [facility] [address] [facility] 1, [place], [address], 12/29/2024 15:15:34 12/30/19 25 12/29/2024 CMP (FEMA LE) ALP phos 76.0 U/L 30.0-1 40.0 normal Not Available [facility] [address] [facility] [address], [place], [address], 12/29/2024 15:15:34 12/30/19 25 12/29/2024 CMP (FEMA LE) calcium 9.7 mg/dL 8.4-10 .5 Not Available [facility] [address] [facility] 1, [place], [address], 12/29/2024 15:15:34 12/30/19 25 12/29/2024 CMP (FEMA LE) sodium 140.0 mmol/ L 136.0- 145.0 Not Available [facility] [address] [facility] 1, [place], [address], 12/29/2024 15:15:34 12/30/19 25 12/29/2024 CMP (FEMA LE) potassium 3.7 mmol/ L 3.5-5. 1 Not Available [facility] [address] [facility] 1, [place], [address], 12/29/2024 15:15:34 12/30/19 25 12/29/2024 CMP (FEMA LE) chloride 105.0 mmol/ L 98.0-1 10.0 normal Not Available [facility] [address], [place], [address], 12/29/2024 15:15:34 12/30/19 25 12/29/2024 CMP (FEMA LE) C02 25.0 mmol/ L 22.0-3 1.0 Not Available [facility] [address], [place], [address], 12/29/2024 15:15:34 12/30/19 25 12/29/2024 CMP (FEMA LE) anion gap 10.0 calc Not Available [facility] [address] [facility] 1, [place], [address], 12/29/2024 15:15:34 12/30/19 25 12/29/2024 CMP (FEMA LE) osmolality 289.0 calc Not Available [facility] [address] [facility], [place], [address], 12/29/2024 15:15:34 12/30/19 25 12/30/2024 D-DIM ER, QUANT ITATI VE D-dimer, quantitative 0.21 mcg/m L_feu <0.50 normal Hundred bradley D-dim er level s are assoc iated with DIC, malig fidel es, infla mmati on, sepsi s, surge ry, traum a, and pregn leigh. A D-dim er resul t less than 0.5 mcg/m L FEU, in conju nctio n with a non-h igh clini deep pre-t est proba bilit y asses sment model , exclu marcia deep vein throm bosis and pulmo nary embol ism. Howev er, since D-dim er value s incre ase with age, the Ameri can Colle ge of Physi cians recom mends an age-a djust ed cut-o ff value in patie nts older than 50. The calcu latio n for an age adjus bradley cut-o ff value is age (year s) x 0.01 mcg/m L FEU. For examp le, the cut-o ff for a 70-ye ar-ol d patie nt would be 70 x 0.01 mcg/m L FEU. For addit ional infor brayan perkins refer to http: //kumar Grover gnost ics.c om/fa q/FAQ 149 (This link is being provi ded for infor madhu nal/e ducat ional purpo ses only. ) Not Available [facility] [address] [place], [address], 12/30/2024 16:27:41 12/30/19 25 12/30/2024 TROPO AMBROSIO I, HIGH SENSI TIVIT Y troponin I, high sensitivity 3 NG/L < or = 47 normal In accor d with publi shed recom menda tions , seria l testi ng of tropo ambrosio I at inter vals of 2 to 4 hours for up to 12 to 24 hours is sugge sted in order to shannan borat e a singl e tropo ambrosio I resul t. An eleva bradley tropo ambrosio alone is not suffi cient to make the diagn osis of [place]. Not Available [facility] [address] [place] [address], [address], 12/30/2024 16:27:42 11/15/19 25 11/14/2024 MAMMO , scree jenise, digit al, bilat eral No observ ation record ed. [address] [place], [address], 11/28/2024 12:07:46 11/15/19 25 11/14/2024 LDCT, chest , for lung cance r scree jenise No observ ation record ed. [address] [place], [address], 11/18/2024 14:46:12 12/30/19 25 12/29/2024 XR, chest , 2 view No observ ation record ed. [address] ([facility]) [address] [place], [address], 12/29/2024 15:25:32 12/30/19 25 12/30/2024 elect rocar diogr am No observ ation record ed. [email or web address] [facility] ([facility]) [address] [place], [address], 12/30/2024 08:39:12 12/30/19 25 12/29/2024 elect rocar diogr am No observ ation record ed. [email or web address] [facility] ([facility]) [address] [place], [address], 12/30/2024 09:19:37 12/31/19 25 12/29/2024 XR, chest , 2 view No observ ation record ed. [email or web address] ([facility]) [address] [place], [address], 12/31/2024 11:27:47 01/15/20 25 12/29/2024 elect rocar diogr am No observ ation record ed. [facility] ([facility]) [address] [place], [address], 01/15/2025 09:36:46 01/21/20 25 01/19/2025 pharm acolo gic nucle ar stres s test No observ ation record ed. [email or web address] [facility] [address] [place], [address], 01/20/2025 12:41:16 01/22/20 25 01/19/2025 pharm acolo gic nucle ar stres s test No observ ation record ed. [email or web address] [facility] [address] [place], [address], 01/21/2025 14:10:41 Result Notes None recorded. Problems Name Problem SNOMED Code Status Onset Date Resolution Date Notes Provider Name and Address Organization Details Recorded Time Migraine NOS Active 2021 migraine HAUSER; 2 3:25PM by Andressa Heath LPN, Office Visit; Promoted; acuity set as *; ANDRESSA torrez, [facility] 5 09:20:39 Cerebrov ascular accident 436322574 Completed 202212/03/2024 CELINA ROSADO null, [facility] 5 11:33:59 [facility] hyperten kavon 88103442 Active 2022 ANDRESSA HEATH null, [facility] 3 12:31:49 Fibromya lgia 898366870 Active 2022 ANDRESSA torrez, [facility] 3 12:31:55 Cerebrov ascular disease 78625678 Active 2023 ANDRESSA HEATH null, [facility] 5 09:20:39 Hiatal hernia 92052834 Active 2024 Florecita Guevara MD [address] [place] [address], [address], [facility] 5 13:33:11 Acquired kyphosis 315505463 Active 2024 Florecita Guevara MD [address] [place] [address], [address], [facility] 5 13:34:35 Cardiova scular stress test abnormal 000031725 Active 2024 Ashley Lopez null, [facility] 5 12:41:45 Notes:Some problems listed i n Document: #[id number] could not be added to this patient's chart. Please review this document and add these problems to the patient's chart manually as needed. Problem Notes None recorded. Procedures Surgical History Date Name Laterality Status Provider Name and Address Organization Details Recorded Time 7 Colonoscopy completed ANDRESSA HEATH [facility] 04/30/2024 09:20:34 Hysterectomy completed ANDRESSA HEATH [facility], Whit 04/30/2024 09:19:57 Imaging Results None recorded. Procedure Notes None recorded. Medical Equipment None Reported. Allergies Allergen ID Allergen Name Allergen Category Reaction Reaction Severity Criticality Documentation Date Start Date Code Code System Note Provider Name and Address Organization Details Recorded Time 3858 codeine medicatio n Not available Not available Not available 12/01/20222022 2670 RxNorm CELINA Wen [facility] 5 11:33:04 [address]702 Product containin g 3-hydroxy -3-methyl glutaryl- coenzyme A reductase inhibitor (product) medicatio n myalgias (muscle pain) Not available Not available 10/16/2024 24868 009 SNOMED [facility] 5 09:26:31 Medications Name Sig Start Date Stop Date Status Note LastModified by Organization Details LastModified Time atorvasta tin 40 mg tablet TAKE 1 TABLET BY MOUTH EVERY DAY *NEEDS APPT* 03/06 completed Not Available Not Available Not Available atorvasta tin 20 mg tablet TAKE 1 TABLET BY MOUTH EVERY DAY 10/16 completed Not Available Not Available Not Available trazodone 50 mg tablet TAKE 1 TABLET BY MOUTH EVERYDAY AT BEDTIME active Not Available Not Available No t Available cetirizin e 10 mg tablet daily 03/06 completed 0; Recorded 09/08/19 22 3:29PM by Andressa Heath LPN, Office Visit; Not Available Not Available Not Available tizanidin e 4 mg tablet TAKE NEEDED FOR MUSCLE SPASMS up to twice daily 2024 active Not Available Not Available Not Avai lable valacyclo vir 1 gram tablet TAKE 1 TABLET BY MOUTH THREE TIMES A DAY FOR 7 DAYS 10/16 completed Not Available Not Available Not Available lisinopri l 20 mg tablet TAKE 1 TABLET BY MOUTH EVERY DAY active Not Available Not Available No t Available ondansetr on HCl 4 mg tablet 1 TAB BY MOUTH EVERY 6 HOURS FOR 2 DAYS NEEDED NAUSEA/V OMITING active Not Available Not Available No t Available prednison e 20 mg tablet TAKE 1 TABLET BY MOUTH THREE TIMES A DAY FOR 7 DAYS 04/30 completed Not Available Not Available Not Available clopidogr el 75 mg tablet TAKE 1 TABLET BY MOUTH EVERY DAY active Not Available Not Available No t Available amlodipin e 5 mg tablet TAKE 1 TABLET BY MOUTH EVERY DAY active Not Available Not Available No t Available lorazepam 0.5 mg tablet 1-2 tabs po up to once daily prn severe anxiety 2024 active Not Available Not Available Not Avai lable pantopraz ole 40 mg tablet,de layed release Take 1 tablet every day by oral route for 30 days. 2024 active Not Available Not Available Not Avai lable diclofena c sodium 75 mg tablet,de layed release TAKE TWICE A DAY NEEDED WITH FOOD FOR PAIN/INF LAMMATIO N 04/30 completed Not Available Not Available Not Available fluticaso ne propionat e 50 mcg/actua tion nasal spray,bk pension [place] 2 sprays every day by intranas al route. 2024 active Not Available Not Available Not Avai lable Ventolin 90 mcg/actua tion aerosol inhaler four times daily 04/30 completed prn wheezing ; 436; Recorded 01/18/20 21 1:48PM by Andressa Heath LPN (Authori zed through Florecita Guevara MD), Annotati on/Adden dum; Refill Quantity : 1; Inhaler; Not Available Not Available Not Available rosuvasta tin 20 mg tablet Take 1 tablet every day by oral route for 90 days. 05/09 completed Not Available Not Available Not Available metoprolo l tartrate 25 mg tablet Take 0.5 tablets twice a day by oral route for 30 days. 2024 active Not Available Not Available Not Avai lable duloxetin e 60 mg capsule,d elayed release TAKE 1 CAPSULE BY MOUTH EVERY DAY active Not Available Not Available No t Available lisinopri l daily 03/06 completed 436; Recorded 04/28/20 22 7:37AM by Andressa Heath LPN (Authori marisol through Florecita Guevara MD), Refill Request; Refill Quantity : 90; Tablet; Not Available Not Available Not Available [place]-3 daily 03/06 completed 0; Recorded 09/08/19 22 3:29PM by Andressa Heath LPN, Office Visit; Not Available Not Available Not Available Trazodone at bedtime 03/06 completed 436; Recorded 04/11/20 22 7:09AM by Andressa Heath LPN (Authori marisol through Florecita Guevara MD), Refill Request; Refill Quantity : 90; Tablet; Not Available Not Available Not Available ferrous gluconate 324 mg (38 mg iron) tablet TAKE 1 TABLET BY MOUTH EVERY OTHER DAY 03/06 completed Not Available Not Available Not Available amlodipin e besylate (bulk) daily 03/06 completed DOC RM/BN; 436; Recorded 04/12/20 22 9:04AM by Andressa Heath LPN (Authori estivend through Florecita Guevara MD), Refill Request; Refill Quantity : 90; Tablet; Not Available Not Available Not Available Trelegy Ellipta 100 mcg-62.5 mcg-25 mcg powder for inhalatio n INHALE 1 PUFF EVERY DAY active Not Available Not Available No t Available Airsupra 90 mcg-80 mcg/actua tion HFA aerosol inhaler TAKE 2 PUFFS BY MOUTH 4 TIMES A DAY FOR 30 DAYS. active Not Available Not Available No t Available Vitals Date Recorded Body height Body mass index (BMI) Body weight Oxygen saturation Oxygen saturation in Arterial blood by Pulse oximetry Heart rate Respiratory rate Body temperature Systolic And Diastolic Provider Name and Address Organization Details Last Updated DateTime 5 160.02 cm 22.7 kg/m2 47932.8 2 g 98 % 98 % 62 /min 18 /min 97.3 [degF] 128/70 mm[Hg] Barbara [facility], hWit 5 09:38:40 Date Recorded Body height Body mass index (BMI) Body weight Oxygen saturation Oxygen saturation in Arterial blood by Pulse oximetry Heart rate Respiratory rate Body temperature Systolic And Diastolic Provider Name and Address Organization Details Last Updated DateTime 5 160.02 cm 23.1 kg/m2 30328.1 1 g 98 % 98 % 70 /min 20 /min 98.8 [degF] 122/72 mm[Hg] CELINA ROSADO [facility], Whit 5 11:45:41 Date Recorded Body height Body mass index (BMI) Body weight Oxygen saturation Oxygen saturation in Arterial blood by Pulse oximetry Heart rate Respiratory rate Body temperature Systolic And Diastolic Provider Name and Address Organization Details Last Updated DateTime 5 160.02 cm 22.1 kg/m2 49468.0 5 g 98 % 98 % 72 /min 16 /min 97.5 [degF] 128/70 mm[Hg] Barbara Reynoso [facility], Whit 5 13:22:25 Date Recorded Body height Body mass index (BMI) Body weight Respiratory rate Oxygen saturation Oxygen saturation in Arterial blood by Pulse oximetry Heart rate Body temperature Systolic And Diastolic Provider Name and Address Organization Details Last Updated DateTime 5 160.02 cm 22.4 kg/m2 54005.0 4 g 17 /min 100 % 100 % 61 /min 98.5 [degF] 134/78 mm[Hg] ABHIJIT [facility], Whit 5 13:28:40 Date Recorded Body height Body mass index (BMI) Body weight Body temperature Respiratory rate Oxygen saturation Oxygen saturation in Arterial blood by Pulse oximetry Heart rate Systolic And Diastolic Provider Name and Address Organization Details Last Updated DateTime 5 160.02 cm 22.1 kg/m2 52139.0 5 g 97.1 [degF] 18 /min 99 % 99 % 59 /min 120/76 mm[Hg] ABHIJIT [facility], Whit 5 10:04:47 Social History Question Answer Notes LastModified by Organizat ion Details LastModified Time Tobacco Smoking Status Current Every Day Smoker ANDRESSA HEATH [facility] 12/01/2022 12:33:06 What Was The Date Of Your Most Recent Tobacco Screening? 11/21/2024 [email or web address] Information not available 11/21/2024 What Is Your Current Pack Years? 20-29packyear s [email or web address] Information not available 10/16/2024 How Much Tobacco Do You Smoke? 1 PPD [email or web address] Information not available 10/16/2024 Sex: Unknown Functional Status Question Answer Note LastModified by Organizat ion Details LastModified Time What is your level of alcohol consumption? Occasional [email or web address] Information not available 10/16/2024 Mental Status None recorded. Family History Relationship Description Onset Age of this Age Resolved Age Notes LastModified by Organization Details LastModified Time Maternal Uncle Leukemia [email or web address] Not available 2023 09:20:54 Maternal Uncle Myocardial infarction [email or web address] Not available 04/03 09:21:15 Father Myocardial infarction [email or web address] Not available 04/03 09:21:15 Father Malignant tumor of colon [email or web address] Not available 11:42:10 Maternal Aunt Myocardial infarction [email or web address] Not available 04/03 09:21:15 Mother Diabetes mellitus [email or web address] Not available 04/30 09:21:33 Maternal Grandmother Diabetes mellitus [email or web address] Not available 04/30 09:21:33 Medical History No medical history recorded. Gynecological HistoryNo gynecological history recorded. Obstetrics History GPAL:G 0 P 0 0 0 0 Immunizations Vaccine Type Date Status Note Provider Nam e and Address Organization Details Recorded Time Influenza, split virus, trivalent, preservative 1 completed Not Available [facility] 01/27/2023 02:37:07 Influenza, split virus, trivalent, preservative 7 completed Not Available [facility] 01/27/2023 02:37:07 Influenza, split virus, trivalent, preservative 1 completed Not Available [facility] 01/27/2023 02:37:07 pneumococcal polysaccharide PPV23 0 completed Not Available [facility] 01/27/2023 02:37:07 Past Encounters Encounter ID Performer Location Encounter Start Date Encounter Closed Date Diagnosis/Indication Diagnosis SNOMED-CT Code Diagnosis ICD10 Code Diagnosis Note [id number] Florecita Guevara MD [facility] ([facility]) [address] [place] [address] [id number] 12/01/2022 12:14:30 12/13/2022 08:12:48 Fibromyalgia 086211180 M79.7 hold statin for 1 month Pain of le ft shoulder joint [id number] 4403946 M25.512 Pain of le ft hip joint 8675509849 56866 M25.552 Screening mammography 24 464066 Z12.31 Screening for malignant neoplasm of colon 945004362 Z12.11 Tobacco de pendence caused by cigarettes 9726779515 1416463 F17.210 she is quitting today on Boris's birthday Restless legs 50307899 G 25.81 Vitamin deficiency 40102 002 E56.9 Essential hypertension 79145017 I10 General ex amination of patient 849613946 Z00.258 [id number] Florecita Guevara MD [facility] ([facility]) [address] [place] [address] [id number] 03/06/2023 13:07:15 03/06/2023 18:27:43 Abnormal weight loss 953656997 R63.[address] chest is normalno other b symptomsCt abdomen and pelvis did not reveal any causemammo gram no evidence of malignancy she is eating 3 meals per day with snacks. her portions have not changed. she has not changed her diet or po intake in any way.she is not taking any supplement fredy hysterecto my was for fibroids. no abnormal paps. she had ovarian cysts. had repeat surgery after hysterecto my for oophorecto my. she had scar tissue. she had wound infection with dehiscence . this was 21-22 years ago. will add tsh and free t4 to her labs from the ER. no other real abnormalit ies to go by.she has not had any other gi or abdominal sx over the year other than what she went to the ER for sunday. [id number] Fran Draper MD [facility] ([facility]) [address] [place] [address] [id number] 04/24/2024 10:36:47 04/27/2024 10:19:03 Weakness of face muscles 98591896 R29.810 Patient was seen as triage and symptoms were concerning for stroke especially given presentati on and history. Patient was sent to the ER for evaluation . [id number] Florecita Guevara MD [facility] (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 she is not inclined at thist jerrod. she hsa cut back a bit. [id number] Florecita Guevara MD [facility] ([facility]) [address] [place] [address] [id number] 10/16/2024 09:09:13 10/16/2024 10:40:23 Cerebrovascular disease 96228843 I67.9 Fibromyalgia 725867179 M 79.7 hold statin for 1 month Heavy ciga rette smoker 934089145 F17.210 Screening mammography 24 055509 Z12.31 Screening for malignant neoplasm of colon 212775114 Z12.11 last colonoscop y 2017 with tubular adenoma Spasm 89189026 M62.838 Cramp in limb 717963494 R25.2 [id number] Florecita Guevara MD [facility] ([facility]) [address] [place] [address] [id number] 10/17/2024 09:54:07 10/18/2024 07:38:15 Essential hypertension 19299025 I10 Cramp in limb 467547376 R25.2 [id number] Florecita Guevara MD [facility] ([facility]) [address] [place] [address] [id number] 11/21/2024 09:32:02 11/21/2024 10:54:56 Health management finding 233049810 J44.9 she is going to wean her self slowly off of nicotine. Requires v accination against Streptococcus pneumoniae 4383275491 Z23 [id number] Fidel Ledesma MD [facility] ([facility]) [address] [place] [address] [id number] 12/03/2024 11:28:31 12/03/2024 13:02:44 History of polyp of colon 165803516 Z86.0100 [id number] Florecita Guevara MD [facility] ([facility]) [address] [place] [address] [id number] 12/29/2024 13:00:39 12/30/2024 10:40:26 Hiatal hernia 03709501 K44.9 Acquired kyphosis 682303 007 M40.14 Chest pain on exertion 76718468 R07.9 can only walk on flat ground 100 yds or so without having to stop. will order nm stress test because i don't think she could complete Seau protocol. she takes plavix. Panic disorder 034957150 F41.0 lorazepam 0.5 tp 1 mg po up to daiy prn anxiety attack [id number] RADHA AHMADI [facility] ([facility]) [address] [place] [address] [id number] 01/05/2025 12:31:35 01/06/2025 10:50:07 Acute transudative otitis media 76151531 H65.193 May use otc meds like zyrtec and fluticason e nasal spray as needed for symptoms. Return to clinic with any new or worsening symptoms. Hearing lo ss of left ear 223509022 H91.92 If no improvemen t, will have patient hearing check with audiologis t. [id number] Florecita Guevara MD [facility] (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 it has already been ordered. she was just waiting to have time to schedule. they have contacted her. Health Concerns Section Related Observation LastModified by Organization Detai ls LastModified Time None Recorded Concern Status LastModified by Organization Details LastModified Time None Recorded Advance Directives Directive None Recorded Payers Insurance Date Sequence Insurance Name Policy Number Policy Moore Covered Member ID Moore Member ID Guarantor Name 04/24/2024 1 [employer] (PPO) Irma Stern [id number] Irma Stern 04/24/2024 1 [employer] [place] Irma Stern [id number] Irma Stern 04/24/2024 2 [employer] (TRADITIONAL) Imra Stern [id number] Irma Stern 01/12/2025 1 [employer] [id number] Irma Stern [id number] Irma Stern 12/04/2022 1 *SELF PAY* Ayse Stern Notes Date Note Type Note Provider Name and Address Organization Details Recorded Time 5 text/html DyspneaReported by PatientHPIFor aggravating factors, patient reportsactivity. For severity, patient reportsmoderate. For duration, patient reportsfor 3 days. For onset/timing, patient reportsdaily. For alleviating factors, patient reportsrest. For context, (worse with exertion). review CT lung screening 11/14/24 Florecita Guevara MD [address] [place] [address], [phone], [facility], .L. 11/21/2024 10:51:58 5 text/html Colonoscopy ScreeningReported by PatientColonoscopy ScreeningFor gi symptoms, patient reportsconstipationbut reportsno abdominal pain,no diarrhea,no recent change in bowel movements,no change in the stool,no color change in stool, andno rectal bleeding. For context, patient reportsprior examinationandhistory of colon polyps. For family history, patient reportscolon cancer (father). For associated symptoms, patient reportsnormal appetite,no fever,no chills,no nausea, andno vomiting. The patient presents today at the request of Dr Guevara for evaluation and discussion of colonoscopy for colon cancer screening. The patient denies any recent abdominal pain, bloody or dark tarry stools, or mucusy stools. Last Colon Cancer screenin04/13/2017-TA Problems with anesthesia in the past: NONE Family History of Colon cancers: Father Blood Thinners: yes plavix Co-morbidities: Fidel Ledesma MD [address] [place] [address], [phone], [facility] 12/03/2024 12:25:23 5 text/html Back PainReported by PatientHPIFor severity, patient reportsworsening(she sleeps a lot). For associated symptoms, patient reportsno feverandno unintentional weight loss. For quality, (dull pain with intermitten sharp pains). For aggravating factors, (she relates the pain with overuse and increased stress). patient continues to have intermittent chest/back pain. she tried a muscle relaxer and her inhaler did not make a difference. the episode of chest pain started 4 days agopatient reports having a lot of stress in her life. patient reports pain in left back that radiates from her back and into her left chest. she gives a real mixed history as far as exacerbating and associating symptoms go. she reports that it comes on with exertion but also with eating associating with belching and acid reflux. , she had it when she got home from work. It lasted until bedtime and she woke with the same discomfort on Sunday it was there all day. without obvious alleviating or exacerbating factors. this came on at 2pm when she was very stressed and anxious at work. 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 it improved some with rest. Right now it feels like it is on fire through there like someone sticking a hot poker through me. She reports this with a joke, smile and laugh. sometimes this comes on after eating and she has reflux and belching. Florecita Guevara MD [address] [place] [address], [phone], [facility], [place]. 12/29/2024 13:55:04 5 text/html ROS as noted in the [facility] walk-in; PCP Dr. Guevara Patient was started on Metoprolol last week. She took two doses of it and then her left ear started ringing. She went to the ER in [place] on 12/30 because the pressure was so bad. She's been dizzy occasionally. Stopped Metoprolol. Still can not hear out of her left ear. RADHA AHMADI [address] [place], [phone], [facility], [place]. 01/05/2025 21:09:32 5 text/html ROS as noted in the [facility] Patient was seen in walk-in on 01/05/25 for problems hearing out of her left ear. She states she still can not hear out of the left ear. right ear is fine, only the left. No pain, no drainage, just can not hear anything out of it. She states there is some pressure there. she has been having chest pain. s he will call today to schedule her heart testing and also Florecita Guevara MD [address] [place], [phone], [facility], [facility]evi[facility]ev[facility]C. 01/08/2025 10:50:39 OBGyn Episode No OBEpisode recorded.
--- NOTE | 2025-01-22 13:01 | ECG_ITS ---
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
--- NOTE | 2025-01-22 13:15 | XR_ITS ---
WS: [id number] Portable AP upright chest, 01/22/2025 Clinical Data: chest pain Comparison: PA and lateral chest, 12/29/2024 Findings: No nodules, masses or effusions are seen. The heart is normal. The pulmonary vascularity is not increased. No pneumonia or pneumothorax is seen. Monitor leads are on the chest wall. XR/XR chest 1V portable [id number] Impression: Negative chest.
--- NOTE | 2025-01-22 13:15 | ECG_ITS ---
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
--- NOTE | 2025-01-22 13:27 | ED_ITS ---
HPI - Chest Pain 2 General: Chief Complaint: Chest Pain Stated Complaint: cp Time Seen by Provider: 01/22/25 13:15 History of Present Illness: 59-year-old female presents emergency ro om complaining of left-sided chest pain that began an hour ago while at rest. She is not the same thing exacerbates or relieves it. She states she had a stress test done earlier this week and evidently was told by her primary care doctor that it was positive. She has pending follow-up with cardiology. She has been having intermittent chest pain for some time is never noticed any aggravating or relieving factors. No known history of coronary artery disease or arrhythmias. She is not on any nitrates. No history of PE or DVT. Not anticoagulants. She is on Plavix. Associated symptoms: Deny abdominal pain, dyspnea or fever(s) Related Data Home Medications ?Medication ?Instructions ?Recorded ?Confirmed trazodone 50 mg tablet 50 mg PO BEDTIME 01/06/20 clopidogrel 75 mg tablet 75 mg PO QAM 03/03/23 duloxetine 60 mg capsule,delayed 60 mg PO QAM 03/03/23 01/22/25 release amlodipine 5 mg tablet 5 mg PO QAM 04/24/24 5 albuterol 90 mcg-budesonide 80 2 inh inhalation QID 01/22/25 mcg/actuation HFA aerosol inhaler (Airsupra) fluticasone fur. 100 mcg-umeclid 1 inh inhalation YUSEF Y 01/22/25 01/22/25 62.5 mcg-vilant 25 mcg inhalat.powder (Trelegy Ellipta) lisinopril 20 mg tablet 20 mg PO DAILY 01/22/2512/31 lorazepam 0.5 mg tablet (Ativan) 0.5 - 1 mg PO DAILY P RN Anxiety 01/22/25 01/22/25 metoprolol tartrate 25 mg tablet 12.5 mg PO BID 01/22/25 ondansetron HCl 4 mg tablet See Rx Instructions .Route .COMPLEX 01/22/25 01/22/25 pantoprazole 40 mg tablet,delayed 40 mg PO DAILY 01/2201/22/25 release tizanidine 4 mg tablet 4 mg PO BID PRN Spasms 01/2201/22/25 Previous Rx's ?Medication ?Instructions ?Recorded isosorbide mononitrate 30 mg 30 mg PO DAILY #14 tabs 0 01/22/25 tablet,extended release 24 hr Allergies Allergy/AdvReac Type Severity Reaction Status Date / Time codeine Allergy Unknown Verified 03/03/23 10:17 [id number]-EWO-[id number] Reductase Allergy ALGY-Joint Verified 01/22/25 13:05 Inhibitor Pain Review of Systems 2 Const: Denies: fever(s) or chills Card: Denies: chest pain Resp: Denies: dyspnea GI: Denies: abdominal pain : Denies: dysuria, urinary frequency or urinary urgency Musc: Denies: neck pain or back pain Skin/Breast: Denies: rash PFSH ED 2 PFSH: Medical History Migraines Hypertension Surgical History History of oophorectomy H/O: hysterectomy Family History Mother Liver failure Father CAD (coronary artery disease) Social History Smoking and tobacco/nicotine status: current every day tobacco/nicotine user Alcohol intake: never Substance/Drug Use: never Physical Exam 2 Const: COMMON NORMALS: no acute distress GENERAL APPEARANCE: cooperative and comfortable ORIENTATION/CONSCIOUSNESS: Yes awake, Yes oriented to person, Yes oriented to place and Yes oriented to time HENMT: COMMON NORMALS: normocephalic, atraumatic and hearing grossly normal bilaterally HEAD & SCALP: normocephalic and atraumatic Resp: COMMON NORMALS: normal respiratory effort, No retractions, No use of accessory muscles and clear to auscultation bilaterally AUSCULTATION: clear to auscultation bilaterally Cardio: COMMON NORMALS: regular rate, regular rhythm and No murmurs present (Cardio) RATE: regular rate RHYTHM: regular rhythm GI: COMMON NORMALS: Soft to palpation and No hepatosplenomegaly present A USCULTATION: Yes normoactive bowel sounds PALPATION: Yes Soft to palpation, No Tenderness to palpation present (GI), No Guarding due to palpation present (GI) and Yes No hepatosplenomegaly present Extremity: COMMON NORMALS: normal to inspection, capillary refill normal, no clubbing, cyanosis or edema, no calf tenderness and no pedal edema Neuro: SENSORIUM/ORIENTATION: Yes oriented to person, Yes oriented to place and Yes oriented to time Skin: COMMON NORMALS: no rashes or lesions noted GENERAL SKIN EXAM: no rashes or lesions noted Course 2 Vital Signs: Vital signs: Vital Signs Temperature 98.0 F 01/22/25 13:02 Pulse Rate 60 01/22/25 17:00 Respiratory Rate 17 01/22/25 17:00 Blood Pressure 144/80 01/22/25 17:00 Pulse Oximetry 96 01/22/25 17:00 Oxygen Delivery Me thod Room Air 01/22/25 17:00 MDM - Chest Pain Medical Decision Making We were able to contact her primary care doctor and get a copy of the stress test stress test shows an abnormal area of perfusion in the septum but is persistent both with stress and at rest. Cardiac enzymes are negative with no acute changes on her delta Trop. Patient has Q waves on her EKG in V1 and 2 that actually match her Lexiscan sestamibi stress test. Discussed with Dr. Loomis was on-call for cardiology he concurs that at this point he would just likely prefer to do risk factor modification and would not recommend a heart catheterization. Reviewed in detail with the patient we will start her on isosorbide mononitrate continue her other medications we will have her add aspirin 81 mg daily and follow-up with her primary care doctor and her almond blancher. Reviewed the cardiac enzymes and EKGs do not show any acute changes. Medical Records I reviewed the patient's medical records. Lab Data I reviewed the patient's lab results. 01/22/25 13:22 01/22/25 13:22 Radiology Impressions Chest X-Ray 01/22/25 13:15 Impression: Negative chest. Laboratory Results WBC 8.30 10^3/uL (3.29-11.43) 01/22/25 13:22 RBC 4.62 10^6/uL (3.85-5.65) 01/22/25 13:22 Hgb 13.80 g/dL (11.27-16.99) 01/22/25 13:22 Hct 41.5 % (36-47) 01/22/25 13:22 MCV 89.8 fl (85-98) 01/22/25 13:22 MCH 29.9 pg (27-33) 01/22/25 13:22 MCHC 33.3 g/dL (30-55) 01/22/25 13:22 RDW 13.6 % (12.1-15.1) 01/22/25 13:22 Plt Count 366 10^3/cmm (157-399) 01/22/25 13:22 MPV 9.6 fL (7.4-10.4) 01/22/25 13:22 Neut % (Auto) 43.1 % 01/22/25 13:22 Lymph % (Auto) 48.6 % 01/22/25 13:22 [place] % (Auto) 6.4 % 01/22/25 13:22 Eos % (Auto) 1.0 % 01/22/25 13:22 Baso % (Auto) 0.7 % 01/22/25 13:22 Neut # (Auto) 3.58 10^3/uL (1.8-7.7) 01/22/25 13:22 Lymph # (Auto) 4.0 10^3/uL (0.8-4.8) 01/22/25 13:22 [place] # (Auto) 0.5 10^3/uL (0.2-0.9) 01/22/25 13:22 Eos # (Auto) 0.1 10^3/uL (0.0-0.8) 01/22/25 13:22 Baso # (Auto) 0.1 10^3/uL (0.0-0.1) 01/22/25 13:22 Nucleated RBC % (auto) 0 % 01/22/25 13:22 Nucleated RBCs # 0.0 /100WBC 01/22/25 13:22 Sodium 140 mmol/L (136-145) 01/22/25 13:22 Potassium 3.7 mmol/L (3.5-5.1) 01/22/25 13:22 Chloride 101 mmol/L (98-107) 01/22/25 13:22 Carbon Dioxide 25 mmol/L (22-29) 01/22/25 13:22 Anion Gap 17.7 (5-19) 01/22/25 13:22 BUN 13 mg/dL (6-20) 01/22/25 13:22 Creatinine 0.8 mg/dL (0.5-0.9) 01/22/25 13:22 GFR Calculation 73.4 mL/min (90-130) L 01/22/25 13:22 Glucose 88 mg/dL (65-115) 01/22/25 13:22 Calculated Osmolality 290 mOsm/kg (285-295) 01/22/25 13:22 Calcium 9.8 mg/dL (8.5-10.5) 01/22/25 13:22 Total Bilirubin 0.5 mg/dL (0.15-1.2) 01/22/25 13:22 AST 14 U/L (0-32) 01/22/25 13:22 ALT 13 U/L (0-33) 01/22/25 13:22 Alkaline Phosphatase 81 U/L (35-105) 01/22/25 13:22 Troponin T Baseline < 6 ng/L (0-10) 01/22/25 13:22 Troponin T 120 Minute < 6.0 ng/L (0-10) 01/22/25 14:55 Delta Troponin T 0 ABS# (0-10) 01/22/25 14:55 NT-Pro-B Natriuret Pep 108 pg/mL (0-125) 01/22/25 13:22 Total Protein 7.3 g/dL (6.6-8.7) 01/22/25 13:22 Albumin 4.8 g/dL (3.5-5.2) 01/22/25 13:22 Globulin 2.5 g/dL (1.3-4.6) 01/22/25 13:22 All radiology interpretation(s) finalized by discharge EKG Data EKG 1: Interpretation: EKG 01/22/2025 1301 sinus bradycardia with a rate of 57. Normal 143 QTc [address] elevation or depression. Compared to EKG 04/24/2024 no changes Discharge Plan Discharge Patient Disposition: Home Clinical Impression: Chest pain, Hypertension Condition: Stable Prescriptions: New isosorbide mononitrate 30 mg tablet extended release 24 hr 30 mg PO DAILY Qty: 14 0RF No Action trazodone 50 mg tablet 50 mg PO BEDTIME clopidogrel 75 mg tablet 75 mg PO QAM duloxetine 60 mg capsule,delayed release(DR/EC) 60 mg PO QAM amlodipine 5 mg tablet 5 mg PO QAM tizanidine 4 mg tablet 4 mg PO BID PRN (Reason: Spasms) lisinopril 20 mg tablet 20 mg PO DAILY ondansetron HCl 4 mg tablet See Rx Instructions .ROUTE .COMPLEX Rx Instructions: 1 TAB BY MOUTH EVERY 6 HOURS FOR 2 DAYS NEEDED NAUSEA/VOMITING lorazepam [Ativan] 0.5 mg Tablet 0.5 - 1 mg PO DAILY PRN (Reason: Anxiety) pantoprazole 40 mg tablet,delayed release (DR/EC) 40 mg PO DAILY metoprolol tartrate 25 mg tablet 12.5 mg PO BID Trelegy Ellipta 100-62.5-25 mcg blister with device 1 inh INHALATION DAILY Airsupra 90-80 mcg/actuation HFA aerosol inhaler 2 inh INHALATION QID Discharge Orders: Discharge ED (Routine); Ordered 01/22/25 Ordered By: Benigno Zheng Referrals: Patrick Guevara MD [Primary Care Provider, Family Practice] Discharge Diet: Usual diet Discharge Activity: Increase activity as tolerated Patient Instructions: Opioid Safety, Pain Management, Patient Portal & Rick Instructions Activity Restrictions/Additional Instructions: Thank you for choosing [facility] for your healthcare needs today. It is very important that you follow up as instructed or that you return to the Emergency Department should you have concerns or if your condition changes or worsens in any way. You were seen in the emergency room with complaint of chest pain your EKG did not show any acute changes. Your cardiac enzymes remained undetectable both at 1 hour and 2-hour. I reviewed the Lexiscan sestamibi stress test that you had done 3 days ago with our almond blancher on-call. Generally they would recommend risk factor modification which includes monitoring blood pressure lowering cholesterol and stopping smoking. He did not think based on these results with the EKGs that we have seen today and the cardiac enzymes was seen today at that he would recommend a coronary angiogram at this time. We will recommend that you start isosorbide mononitrate daily try to stop smoking and follow-up with Dr. Guevara and your almond blancher. Print Language: Citizen Of [place] Coding Level of Care Code ED Middle Card Tender for Leiag Joaquin
[2025-01-22 13:28] LABS: Hematocrit 41.5 % (36-47); Hemoglobin 13.80 g/dL (11.27-16.99); Mean Corpuscular HGB Conc 33.3 g/dL (30-55); Mean Corpuscular Hemoglobin 29.9 pg (27-33); Mean Corpuscular Volume 89.8 fl (85-98); Nucleated Red Blood Cells % 0 %; Platelet Count 366 10^3/cmm (157-399); Red Blood Count 4.62 10^6/uL (3.85-5.65); White Blood Count 8.30 10^3/uL (3.29-11.43)
[2025-01-22 13:48] LABS: Troponin(5th) Baseline < 6 ng/L (0-10)
[2025-01-22 14:03] LABS: Alanine Aminotransferase 13 U/L (0-33); Albumin Level 4.8 g/dL (3.5-5.2); Alkaline Phosphatase 81 U/L (35-105); Anion Gap 17.7 (5-19); Aspartate Amino Transferase 14 U/L (0-32); Blood Urea Nitrogen 13 mg/dL (6-20); Calcium 9.8 mg/dL (8.5-10.5); Carbon Dioxide 25 mmol/L (22-29); Chloride 101 mmol/L (98-107); Creatinine Clr Calc Pharmacy 65.6886; Globulin 2.5 g/dL (1.3-4.6); Glucose 88 mg/dL (65-115); NT Pro B Type Natriuretic Pept 108 pg/mL (0-125); Osmolality Calculated 290 mOsm/kg (285-295); Potassium 3.7 mmol/L (3.5-5.1); Sodium 140 mmol/L (136-145); Total Protein 7.3 g/dL (6.6-8.7)
--- NOTE | 2025-01-22 15:07 | ECG_ITS ---
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 Measurements Intervals Brilliant Rate: 51 P: 65 PA: 146 QRS: 40 QRSD: 85 T: 73 QT: 427 QTc: 395 Interpretive Statements SINUS BRADYCARDIA LOW QRS VOLTAGE IN PRECORDIAL LEADS [QRS DEFLECTION < 1.0 mV IN CHEST LEADS] SEPTAL MYOCARDIAL INFARCTION , OF INDETERMINATE AGE [40+ ms Q WAVE IN V1/V2] Compared to ECG 01/22/2025 13:28:25 No significant changes Electronically Signed On 01-24-2025 08:53:56 CDT by Brandon Loomis M.D. [email or web address]
[2025-01-22 15:28] LABS: Troponin 5 2HR < 6.0 ng/L (0-10); Troponin 5 2HR Delta 0 ABS# (0-10)
== END 2025-01-22 17:14 | disposition home or self-care (01) ==
PROVIDERS: Emergency Medicine; Emergency Provider Family Medicine; PCP Family Medicine
DX: R07.9 Chest pain, unspecified (principal); I10 Essential (primary) hypertension; Z79.02 Long term (current) use of antithrombotics/antiplatelets; Z72.0 Tobacco use
CPT/HCPCS: 36415; 71045; 80053; 83880; 84484; 85025; 93005; 99285; J9999

== ENCOUNTER → 2025-01-29 14:54 | Outpatient (BNVA) | payer OTHER, SELFPAY | PROVIDERS: PCP Family Medicine; Referring Provider Family Medicine; Visit Provider Internal Medicine Cardiovascular Disease | DX: R07.9 Chest pain, unspecified (principal); I10 Essential (primary) hypertension; R58 Hemorrhage, not elsewhere classified | CPT/HCPCS: 36415; 80048; 85025; 85610; 93005 ==

== ENCOUNTER 2025-02-05 08:09 | Outpatient (CLI) | payer OTHER, SELFPAY ==
[2025-02-05 09:26] LABS: Cholesterol 254 mg/dL (0-200); HDL Cholesterol 49 mg/dL (60-100); Triglycerides 123 mg/dL (0-150)
== END 2025-02-05 08:10 | disposition home or self-care (01) ==
PROVIDERS: PCP Family Medicine; Visit Provider Internal Medicine Cardiovascular Disease
DX: E78.5 Hyperlipidemia, unspecified (principal)
CPT/HCPCS: 36415; 80061

== ENCOUNTER 2025-02-11 05:38 | Outpatient (CLI) | payer OTHER, SELFPAY ==
[2025-02-11] VITALS (20 sets, daily range): BP systolic 103–158; BP diastolic 62–92; PULSE 60–75; RESP 16–27; TEMP 36.4–36.5; O2SAT 93–99; BMI 21.4
--- NOTE | 2025-02-11 06:00 | XACV_ITS ---
Ht: 163 cm Wt: 57 kg BSA: 1.60 m2 Gender: Female : 1965 Any Known Allergies: Other Exam Priority: Routine Indication(s): - Chest pain - Abnormal nuclear perfusion test Procedure(s): Procedure Description: Diagnostic procedure Procedure Description: Left Heart Catheterization Procedure Description: Left ventriculography Procedure Description: Coronary Angiography Mor FOSTER; Diagnostic Cath Status: Elective Diagnostic Findings * Left Main has no disease. * Circumflex has no disease. * Right Coronary Artery has no disease. * Proximal Left Anterior Descending: luminal irregularities 20% stenosis, DARREL: 3 flow. * Distal Left Anterior Descending: minimal 30% stenosis, DARREL: 3 flow. * Coronary angiography shows right dominance. Conclusions 1. There is minimal coronary artery disease with one vessel disease. 2. All de la vega are normal. 3. Hyperdynamic left ventricular systolic function. Ejection fraction of 70%. Recommendations * Continue current medical management and risk factor modification. Diagnostic RX Recommendation: medical therapy and/or counseling LV EDP: 12 mmHg Ventriculography Ejection Fraction: 70.0 % Pressures Phase:Rest AO : 110 / 80 ( 95 ) @ 9:53:00 AM 129 / 68 ( 94 ) @ 10:00:00 AM 133 / 70 ( 97 ) @ 10:00:00 AM LV : 134 / -11 / 12 @ 9:59:00 AM 131 / -11 / 13 @ 10:00:00 AM 131 / -12 / 13 @ 10:00:00 AM Valves Phase:DefaultPhase AV : 1.0 @ 9:05:48 AM AV Mean Gradient: 0.0 @ 9:05:48 AM Clinical Evaluation EBL: 5mL-10mL Procedural Details Procedure Consent Obtained. Current Diagnosis : Chest Pain. Pre-Procedure Time Out. Identified patient by full name and date of as verbalized by the patient/guarantor. Does the consent match the physician's order: Yes. Accurate & Complete Informed Consent: Yes. Inpatient/Outpatient History & Physical on Chart: Yes. If H&P is completed, is and addenduem needed: No; If yes, is the addendum complete: N/A. Visualize and Verify Site with Patient/Guarantor: N/A. Relevant Radiology Images available: N/A. The risks, benefits, and alternatives of sedation and/or procedure were discussed by physician. The patient agrees to continue. Procedure started. [facility] Clinical Fraility Score: 3: Managing Well. Rater Associate Indications: Other. Chest Pain Symptom Assessment: Typical Angina Symptoms. Cardiovascular Instability: No. Correct patient, site and procedure confirmed by cath team. Current diagnosis: Chest Pain; Abnormal stress test. PERRLA. Strong, equal hand bung driver bilaterally. Lungs clear x 5 lobes. IV Site on Arrival: 20 gauge in the left anticubital. IV Fluids: 0.9% NaCl at KVO. 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 Pre Procedural Pulses: bilateral dorsalis pedis was 3+. Pre Procedural Pulses: bilateral posterior tibial was 1+. Pre Procedural Pulses: bilateral radial was 2+. Oxygen started at 3liters/min via nasal canula. right groin was prepped with chloroprep then draped in the usual sterile fashion. right radial was prepped with chloroprep then draped in the usual sterile fashion. Physician notified. Baseline sample Acquired. HR: 61 BPM. Family updated by MD prior to the start of the procedure. Physician arrived. Physician scrubbed in. Immediate Pre-Procedure Time Out. Correct Patient: Yes; Correct Procedure: Yes; Correct Site: Yes; Correct Patient Position: Yes; Correct Supplies: Yes; Dried Flammable Prep: Yes; Blood Products Available: N/A;. Lidocaine 1% infiltrated to the right radial. Arterial access obtained. A 5 marshallese Jnoah catheter in over wire. Multiple views taken of left coronary artery. Catheter redirected to the RCA. Multiple views taken of right coronary artery. Catheter removed over the exchange wire. A 5 marshallese Angled Pig catheter in over wire. EDP Sample taken: LV 134/-12,12; HR: 78 BPM; SpO2: 98%. LV gram performed in PICHARDO @ 10 mL/second for a total of 30 mL. Patient EF: Normal. EDP Sample taken: LV 131/-12,13; HR: 80 BPM; SpO2: 99%. Pullback taken: LV 131/-13,13; AO 129/68(94); Mean: 0mmHg, Peak to Peak: 1mmHg, SEP: 20sec/min; HR: 79 BPM; SpO2: 99%. Catheter removed over the wire. Physician review of films. Physician scrubbed out. Post-op diagnosis: Non Obstructive CAD. A TR Band was successful obtaining hemostatsis at the Right Radial artery insertion site. TR band placed. Hemostasis obtained. Post Procedure: Pulses reassessed and unchanged. PERRLA. Strong, equal hand bung driver bilaterally. No VTE prophylaxis required. Medication's Wasted: Lidocaine 1% = 18 ml , Nitro = 49.6 mg , Heparin = 1000 units. Total IV fluids: 50 mL. Fluoro: 2:06. Contrast type used: Omnipaque 300 mg/mL, 150 mL bottle. [id number]. Complications: None. Estimated blood loss: 5mL-10mL. Responsiveness - Normal response to verbal stimuli; alert and oriented, PERRLA. Airway - Unaffected, no intervention required; spontaneous ventilation. Circulation: W/N/L, pulses unchanged. Nausea/Vomiting: No. Procedure completed. Patient transferred by bed to 1st floor. Vital chart was stopped. Access Site Site: Right Radial artery Sheath Size: 6 Fr Hemostasis Method: TR Band Hemostasis Success: Successful Procedure Medications Start: 8:29 AM Stop: 8:29 AM Medication: Fentanyl Amount: 25 mcg Route: I.V. Start: 8:38 AM Stop: 8:38 AM Medication: Versed 1 mg and Fentanyl 25 mcg Amount: 1 Route: I.V. Start: 8:45 AM Stop: 8:45 AM Medication: Versed Amount: 1 mg Route: I.V. Start: 8:51 AM Stop: 8:51 AM Medication: Nitrogylcerin Amount: 200 mcg Route: I.A. Start: 8:51 AM Stop: 8:51 AM Medication: Heparin Amount: 5000 units Route: I.V. Start: 8:51 AM Stop: 8:51 AM Medication: Fentanyl Amount: 25 mcg Route: I.V. Start: 8:54 AM Stop: 8:54 AM Medication: Fentanyl Amount: 25 mcg Route: I.V. Start: 8:55 AM Stop: 8:55 AM Medication: Nitrogylcerin Amount: 200 mcg Route: I.A. I, the attending physician, have reviewed and verified all procedure medications. Yes, all medications given per verbal order History/Risk Factors Hypertension: Yes Dyslipidemia: Yes Peripheral Arterial Disease (PAD): No Myocardial Infarction (MS): No Obesity: No Renal Disease: No Tobacco Use: Current/Recent(w/in 1 year) Prior Interventions PCI: No CABG: No Valve Surgery: No Report Signatures Finalized by Marylou Juares MD on 02/11/2025 09:23 AM
--- NOTE | 2025-02-11 08:39 | P.HPUD_ITS ---
Surgery/Procedure H&P Update DATE OF PROCEDURE: February 11, 2025 DATE H&P PERFORMED: 01/29/25 H&P UPDATE INFORMATION: I have reviewed H&P completed within last 30 days, I have examined patient prior to procedure and No changes to prior documentation PREOP DIAGNOSIS: Abnormal stress test/recurrent chest pain PRIMARY INDICATION FOR PROCEDURE: 59-year-old female continues tobacco abuse with [id number], has been visiting emergency room for recurrent chest pain. Patient underwent stress test which showed fixed perfusion defect thought to be old myocardial infarction treated medically however since patient continues to have recurrent chest pain shortness of breath upon [id number] exertion and occasionally at rest, her retail merchandiser referred her for left heart catheter PLANNED PROCEDURE: Operation Date: 02/11/25 07:00 Proposed Procedures p Cardiac Catheterization - C w/w/o LV & Coros(Left) - Marylou Juares MD PATIENT REASSESSED PRIOR TO SEDATION, WITH NO CHANGE NOTED: Yes PHYSICAL EXAM: alert, oriented x 3, clear to auscultation bilaterally, regular rate & rhythm and operative site marked AIRWAY EVAL/ANESTHESIA PLAN: ASA II, Risks, benefits & alternatives of sedation and/or procedure discussed and Patient agrees to continue as planned ADDITIONAL INFORMATION: Patient has been explained all risk-benefit and alternative for the procedure. Patient understand 2% risk of stroke major bleed patient understand 5% risk of minor bleeding oozing infection hematoma contrast induced nephropathy vascular and cardiac surgery. Patient understood it completely and would like to proceed with it.
--- NOTE | 2025-02-11 13:17 | PC.NURSE ---
pt tr band off at 1132, no hematoma seen. Site dressed with gauze and tegaderm. IV removed and patient discharged at at 1302.
== END 2025-02-11 13:02 | disposition home or self-care (01) ==
LOC: CCL 09:25 → CSU 09:26
PROVIDERS: PCP Family Medicine; Visit Provider Internal Medicine Cardiovascular Disease
DX: I25.10 Atherosclerotic heart disease of native coronary artery without angina pectoris (principal); I10 Essential (primary) hypertension; E78.5 Hyperlipidemia, unspecified; F17.200 Nicotine dependence, unspecified, uncomplicated; Z79.82 Long term (current) use of aspirin; K21.9 Gastro-esophageal reflux disease without esophagitis; Z82.49 Family history of ischemic heart disease and other diseases of the circulatory system
CPT/HCPCS: 36415; 93458; 99152; 99153; C1769; C1887; C1894; J1644; J2250; J3010; J3490; J7030; J9999; Q0163; Q9967